=== PATIENT | male | born 1965 | race Caucasian/White ===

== ENCOUNTER 2018-10-27 09:35 | Observation (INO) ==
--- NOTE | 2018-10-27 10:17 | PROVIDER DOCUMENTATION ---
HPI-General Adult - General Chief Complaint: Extremity Pain Stated Complaint: rt leg pain Time Seen by Provider: 10/27/18 10:08 Source: patient Allergies/Adverse Reactions: Patient Allergies Allergy/AdvReac Type Severity Reaction Status Date / Time No Known Allergies Allergy Verified 08/23/16 19:54 - History of Present Illness -Gen Adult Nature of Presenting Problems: Patient is a 53 yowm presenting to the ED today for right leg swelling and pain. He reports the pain is primarily in the back of his leg, but the blood vessels in the front of his legs are distended. He states the pain started during the middle of the night. He reports redness and swelling in the lower extremity when standing and walking, but no redness or swelling noted on assessment (patient is laying down). He denies shortness of breath, chest pain, dizziness, n/v/d. He does report diaphoresis when walking due to the pain. Patient denies any other symptoms. He denies any recent surgeries or any history of DVT's. He denies any health problems. In no acute distress. Location of Pain/Injury: reports: lower extremity (right lower leg) Pain Radiation: reports: no radiation Quality of Pain: reports: aching, dull Severity: reports: mild Onset/Duration: reports: last night Timing: reports: still present Context/Activities at Onset: reports: sleep Modifying Factors: improves with: nothing Associated Symptoms: reports: diaphoresis (while walking due to pain). denies: anxiety, arm pain, back/neck pain, chest pain, constipation, cough, diarrhea, dizziness, EENT symptoms, fatigue, fever/chills, genitourinary problems, hea daches, heartburn, joint pain, loss of appetite, malaise, muscle aches, sinus congestion/drainage, nausea, rash, seizure, shortness of breath, sensory/motor loss, pain with inspiration, swelling/mass in abdomen, syncope, vomiting, weakness, trouble walking Similar Symptoms Previously?: No Recently seen or treated by another doctor?: No Review of Systems - Adult - REVIEW OF SYSTEMS - ADULT Constitutional: reports: no symptoms reported. denies: chills, fever Eyes: reports: no symptoms reported Ears, Nose, Mouth & Throat: reports: no symptoms reported Cardiovascular: reports: no symptoms reported. denies: chest pain, palpitations, syncope Respiratory: reports: no symptoms reported. denies: cough, dyspnea on exertion, shortness of breath Gastrointestinal: reports: no symptoms reported. denies: abdominal pain, diarrhea, nausea, vomiting Genitourinary: reports: no symptoms reported Musculoskeletal: reports: no symptoms reported Integumentary: reports: no symptoms reported Neurological: reports: no symptoms reported. denies: dizziness/vertigo, headache/migraines Psychiatric: reports: no symptoms reported Endocrine: reports: no symptoms reported Hematologic/Lymphatic: reports: no symptoms reported Allergic/Immunologic: reports: no symptoms reported All Other Systems: Reviewed and Negative Past History - Adult - PAST MEDICAL HISTORY-ADULT Review of Records: reports: Old Records Reviewed, Nursing Assessment Review, Medications Reviewed Major Childhood Illnesses: reports: denies history Cardiovascular: reports: denies history Respiratory: reports: denies history Gastrointestinal: reports: denies history Obstetrical/Gynecological: reports: denies history Genitourinary: reports: denies history Musculoskeletal: reports: denies history Neurological: reports: denies history Endocrine/Immune: reports: denies history Other Conditions: reports: denies history - IMMUNIZATION STATUS Childhood Immunizations: See Nurse Assessment Flu Vaccine: See Nurse Assessment - FAMILY HISTORY Family History: reviewed, not pertinent - SOCIAL HISTORY Smoking: denies Physical Exam-General - PHYSICAL EXAM-ADULT Initial Vital Signs Reviewed: Yes - CONSTITUTIONAL General Appearance: appears well, alert, no apparent distress - EYES Eyes: PERRL/EOMI, pink conjunctivae - HEAD, EARS, NOSE, MOUTH & THROAT HENMT: normocephalic/atraumatic, moist mucous membranes - NECK Neck: non-tender, full range of motion, supple - RESPIRATORY Respiratory: chest non-tender, lungs clear, normal breath sounds, no pleuratic chest pain, no respiratory distress, no accessory muscle use - CARDIOVASCULAR Cardiovascular: regular rate, rhythm, no edema, no gallop, no JVD, no murmur - GASTROINTESTINAL (ABDOMEN) Abdominal Exam: normal bowel sounds, non tender, soft - LYMPHATIC Lymphatic: no adenopathy - MUSCULOSKELETAL Back Exam: normal inspection, no CVA tenderness, no vertebral tenderness Extremity: normal range of motion, non-tender, normal gait, no pedal edema, tenderness (lower right leg), other (blood vessels distended) - SKIN Integumentary: normal color, normal turgor, warm/dry - NEUROLOGIC Neurologic: grossly normal, no motor/sensory deficits - PSYCHIATRIC Psych/Mental Status: normal mood/affect, normal thought content, normal thought process, oriented x 3 Progress - PLAN OF CARE/RESULTS Progress/Plan/Lab Results: Vital Signs - 8 hr 10/27/18 09:36 Temperature 98.9 F Pulse Rate 97 H Respiratory Rate 18 Blood Pressure 184/118 O2 Sat by Pulse Oximetry 98 Orders Category Date Time Status BNP [PRO B-NATRIURETIC PEPTIDE] Stat Lab 10/27/18 10:15 Uncollected CBC WITH ELECTRONIC DIFF [HEME] Stat Lab 10/27/18 10:13 Uncollected CK PROFILE [SP CHEM] Stat Lab 10/27/18 10:13 Uncollected COMPREHENSIVE METABOLIC PANEL [CHEM] Stat Lab 10/27/18 10:13 Uncollected D-DIMER [COAG] Stat Lab 10/27/18 10:13 Uncollected PROTIME WITH INR [COAG] Stat Lab 10/27/18 10:13 Uncollected PTT [COAG] Stat Lab 10/27/18 10:13 Uncollected TROPONIN T Stat Lab 10/27/18 10:13 Uncollected EKG [EKG] Stat Ther 10/27/18 10:13 Ordered Discussed plan of care with patient, he understands and agrees with plan of care and denies any questions at this time. 12:23- computer technical specialist reports patient told her he had a fall 2 weeks ago that he forgot to tell me about. 12:20- Paged hospitalist. 12:35- discussed plan of care with patient and family and informed them the hospitalist will be down to see patient soon. Result Diagrams: 10/27/18 09:57 10/27/18 09:57 - EKG 1 Time of EKG reading by physician:: 10:45 EKG Read and Signed by:: Nicole Romo EKG Interpretation (*Must complete 3 of following elements*): Normal Rate: 89 Rhythm: sinus [place]: normal DC Interval: normal ST Wave: normal - CONSULTS/PCP/HOSPITALIST Notification #1 *Consult/PCP/Hospitalist*: Dr. Santos Time Discussed: 12:25 Reason/Comments: Admission for DVT Consult Disposition: Will see in ED, Admit Departure - Departure Date of Disposition Decision: 10/27/18 Time of Disposition Decision: 12:28 DIAGNOSIS: Elevated blood pressure reading Hypertension Qualifiers: Hypertension type: unspecified Qualified Code(s): I10 - Essential (primary) hypertension DVT (deep venous thrombosis) Qualifiers: DVT location: lower extremity Affected thrombotic vein of extremity: unspecified vein of extremity Chronicity: acute Laterality: right Qualified Code(s): I82.401 - Acute embolism and thrombosis of unspecified deep veins of right lower extremity Disposition: ADMITTED INPATIENT 09 Certified Medical Emergency: Emergent Condition: Stable - Critical Care Note This patient required my direct & personal management of CC.: No Attestation - Physician/ LAWRENCE Attestation Patient care was provided by Advanced Practice Provider:: Yes Advanced Practice Provider:: Krista Park Advanced Practice Provider documentation review:: The Mid-level provider docume ntation, treatment plan and medical decision making was reviewed by the physician who agrees with all treatment and medical decision making by the MLP. The physician spent face to face time with patient:: No Advanced Practice Provider documentation review:: Supervising physician onsite and consulted in the evaluation and care of this patient. The physician did not have a face to face encounter with the patient.
[2018-10-27 10:41] LABS: BASO# 0.06 X1000 (0.0-0.2); BASO% 0.7 % (0.0-0.8); EOS# 0.16 X1000 (0.0-0.7); EOS% 1.8 % (0.0-10.0); HEMATOCRIT 47.3 % (42.0-52.0); IMM GRAN# 0.03 X1000 (0.0-0.04); IMM GRAN% 0.3 % (0.0-0.5); LYMPH# 2.14 X1000 (1.2-3.4); LYMPH% 24.4 % (20.5-51.1); MCH 28.9 PG (27-31); MCHC 33.8 g/dL (33-37); MCV 85.5 FL (81-99); MONO# 0.59 X1000 (0.11-0.59); MONO% 6.7 % (1.7-9.3); MPV 10.1 FL (7.4-10.4); NEUT# 5.79 X1000 (1.4-6.5); NEUT% 66.1 % (42.2-75.2); PLT 271 X1000 (130-400); RBC 5.53 XMIL (4.7-6.1); RDW 12.8 % (11.5-14.5); WBC 8.77 X1000 (4.8-10.8)
[2018-10-27 10:51] LABS: INR 0.88; PROTIME 12.6 Seconds (11.0-16.0)
[2018-10-27 10:52] LABS: PTT 33.9 Seconds (22.3-41.8)
[2018-10-27 10:54] LABS: D-DIMER 1.38 ug/mLFEU (0.0-0.52)
[2018-10-27 11:01] LABS: POTASSIUM 4.1 mmol/L (3.5-5.1); SODIUM 139 mmol/L (136-145)
[2018-10-27 11:02] LABS: AGAP 11; ALB/GLOB RATIO 1.2; ALBUMIN 4.3 g/dL (3.5-5.0); ALKALINE PHOSPHATASE 94 U/L (32-122); BUN 19 mg/dL (8-22); CALCIUM 9.2 mg/dL (8.8-10.2); CHLORIDE 102 mmol/L (98-107); COSMO 279; CREATININE 0.9 mg/dL (0.7-1.2); ESTIMATED GFR > 60; GLUCOSE 91 mg/dL (70-104); GOT 26 U/L (10-34); GPT 21 U/L (10-44); TCO2 26 mmol/L (25-35); TOTAL PROTEIN 7.9 g/dL (6.3-8.3)
--- NOTE | 2018-10-27 11:14 | EKG Report ---
Test Performed on : 10/27/2018 10:35:59 AM Test Reason : leg swelling Blood Pressure : / mmHG Vent. Rate : 089 BPM Atrial Rate : 089 BPM P-R Int : 146 ms QRS Dur : 094 ms QT Int : 368 ms P-R-T Axes : 046 -19 028 degrees QTc Int : 447 ms Normal sinus rhythm. Minimal voltage criteria for LVH, may be normal variant Borderline ECG No previous ECGs available Unconfirmed Result
[2018-10-27 11:20] LABS: CK PROFILE 560 U/L (24-204)
[2018-10-27 11:56] LABS: CK INDEX 0.7 (0.0-2.5); CK-MB 3.95 ng/mL (0.0-5.0)
[2018-10-27] MEDS ORDERED: APRESOLINE IV ONE (13:32)
[2018-10-27] MEDS: LOVENOX SUBQ SCH (13:53)
--- NOTE | 2018-10-27 14:15 | HISTORY AND PHYSICAL ---
CHIEF COMPLAINT: Right lower extremity pain. HISTORY OF PRESENT ILLNESS: This is a 53-year-old gentleman with no prior health history who presents to the emergency room complaining of pain and a burning sensation from his right knee down to his foot, primarily in his calf. He states that after standing for a while, his leg becomes tight and he is unable to move it, and he has difficulty putting pressure, standing. He denies any numbness or tingling, any change in color, or tingling to his leg or foot. He denies any syncope, dizziness, chest pain, palpitations, or any shortness of breath. The patient denies any recent sedentary activities. He denies any long trips, any flights, any injuries. He did state that he fell about 2 weeks ago, hurting this right leg and he has had intermittent pain, although it was different than this sensation. Venous ultrasound of the right lower extremity, preliminary read is DVT of the right lower extremity. PAST MEDICAL HISTORY: Childhood asthma. PAST SURGICAL HISTORY: Denies. SOCIAL HISTORY: He denies alcohol, tobacco, or illicit drug use. He is . He has a son and a [id number], has grandchildren that live nearby. ALLERGIES: No known drug allergies. HOME MEDICATIONS: None. REVIEW OF SYSTEMS: Discussed with the patient with pertinent positives stated in the HPI. He denies any syncope, dizziness, chest pain, palpitations, shortness of breath, cough, PND, orthopnea, any night sweats, any recent weight loss or weight gain, any nausea, vomiting, diarrhea, constipation, black or bloody vomitus or stools, hematuria, dysuria, frequency, urgency. PHYSICAL EXAMINATION: GENERAL: This is a 53-year-old gentleman who is sitting up on the stretcher in the emergency room, in no distress. VITAL SIGNS: Blood pressure is 170/120, heart rate is 97, respirations are 20, temperature is 98.9 degrees, with room air saturations 95-97%. HEENT: Eyes: Pupils are equal, round, react to light. EOMs are intact. Mucous membranes are moist. NECK: Supple. Trachea midline. CARDIOVASCULAR: Regular rate and rhythm. S1 and S2 are appreciated. He has no murmur. He has no lower extremity edema. Left calf is nontender with peripheral pulses palpable x4 extremities. PULMONARY: Breath sounds are clear. No increased work of breathing noted. Chest rises and falls symmetric with respirations. Chest wall is nontender to palpation. GASTROINTESTINAL: Abdomen is soft, nontender, nondistended. Bowel sounds in all 4 quadrants. GENITOURINARY: There is no CVA or suprapubic tenderness. NEUROLOGIC: He is alert and oriented x3. SKIN: Warm and dry. LABS: WBC is 8.7, with hemoglobin 16, hematocrit 47.3, and platelets of 271,000. D-dimer is 1.38 with INR of 0.88. Sodium 139, potassium 4.1, BUN 19, creatinine 0.9, with a glucose of 91. CPK is 560, troponin is negative. CRP is 37.6. ASSESSMENT AND PLAN: 1. Right lower extremity deep venous thrombosis. We will give the patient Lovenox 1 mg/kg twice a day. We will consult social welfare clerk to check on his affordability of Eliquis or Xarelto. We will draw hypercoagulation labs. As he has no primary care physician, they do have a relationship with Dr. Landa, so we will schedule a followup with Dr. Landa in 4 to 6 weeks to discuss labs. 2. Hypertension. The patient denies any prior hypertension. He denies a prior diagnosis of hypertension. We will give hydralazine as needed for blood pressure of 180 systolic or over 90 diastolic, and reevaluate. 3. Further treatments pending hospital course and discussion with Dr. Olmos. Dictated by DANG Matias for Yahir Evans MD cc: DANG Matias MD
[2018-10-27] MEDS ORDERED: APRESOLINE IV PRN (15:38)
[2018-10-27] MEDS: NORCO-7.5 PO PRN ×2 (16:09→22:18)
[2018-10-28] MEDS: LOVENOX SUBQ SCH ×2 (02:37→14:37)
[2018-10-28 05:57] LABS: BASO# 0.06 X1000 (0.0-0.2); BASO% 0.8 % (0.0-0.8); EOS# 0.11 X1000 (0.0-0.7); EOS% 1.5 % (0.0-10.0); HEMATOCRIT 45.1 % (42.0-52.0); IMM GRAN# 0.02 X1000 (0.0-0.04); IMM GRAN% 0.3 % (0.0-0.5); LYMPH# 2.43 X1000 (1.2-3.4); LYMPH% 33.6 % (20.5-51.1); MCH 28.8 PG (27-31); MCHC 33.3 g/dL (33-37); MCV 86.6 FL (81-99); MONO# 0.66 X1000 (0.11-0.59); MONO% 9.1 % (1.7-9.3); MPV 9.8 FL (7.4-10.4); NEUT# 3.96 X1000 (1.4-6.5); NEUT% 54.7 % (42.2-75.2); PLT 277 X1000 (130-400); RBC 5.21 XMIL (4.7-6.1); WBC 7.24 X1000 (4.8-10.8)
[2018-10-28 06:27] LABS: AGAP 12; ALKALINE PHOSPHATASE 81 U/L (32-122); BUN 13 mg/dL (8-22); CHLORIDE 102 mmol/L (98-107); COSMO 278; CREATININE 0.8 mg/dL (0.7-1.2); ESTIMATED GFR > 60; GLUCOSE 97 mg/dL (70-104); GOT 16 U/L (10-34); GPT 17 U/L (10-44); POTASSIUM 4.1 mmol/L (3.5-5.1); SODIUM 139 mmol/L (136-145); TCO2 26 mmol/L (25-35); TOTAL PROTEIN 7.5 g/dL (6.3-8.3)
[2018-10-28] MEDS: NORCO-7.5 PO PRN (06:42)
[2018-10-28] MEDS ORDERED: PRINIVIL PO SCH (09:00)
[2018-10-28 12:18] VITALS: BP 144/96
--- NOTE | 2018-10-28 15:54 | Extremity Venous Study ---
PROCEDURE NAME: Venous U/S Right Leg - 10/27/2018 PROCEDURE: Right lower extremity venous duplex study. DATE OF STUDY: 10/27/2018. REFERRING PHYSICIAN: DANG Park. READING PHYSICIAN: Luis. EDUCATION DIRECTOR: Марина. INDICATION: Right leg pain. FINDINGS: The right common femoral, deep femoral and superficial femoral veins were imaged. They are compressible, patent without thrombus. The right greater saphenous vein is also compressible and patent and without thrombus. However, there is acute thrombosis of the right popliteal, posterior tibial, peroneal and lesser saphenous veins. These veins are not compressible. There is no flow. INTERPRETATION: Acute deep vein thrombosis of the right popliteal, posterior tibial and peroneal veins, acute supraventricular tachycardia of the lesser saphenous vein on the right. cc: Kaiden Smith MD
--- NOTE | 2018-10-29 03:43 | DISCHARGE SUMMARY ---
ADMISSION DATE: 10/27/2018 DISCHARGE DATE: 10/28/2018 PRIMARY CARE PROVIDER: None. ONCOLOGIST: Dr. Landa. PERTINENT PROCEDURES: EKG showed normal sinus rhythm. DISCHARGE DIAGNOSES: 1. Right lower extremity deep venous thrombosis. The patient was initiated on Lovenox 1 mcg/kg twice a day. We compared the affordability of Eliquis and Xarelto with his insurance. He will be discharged with Xarelto. Hypercoagulable studies were performed. He will follow up in the office with Dr. Landa in the next 4 to 6 weeks to discuss his lab work and he will take his Xarelto as prescribed. 2. Hypertension. He has been given a prescription for lisinopril. HOSPITAL COURSE: Briefly, Mr. Calle is a 53-year-old male who reports no prior health history, who came to the ED complaining of pain and burning sensation of the right knee down to his foot primarily in his calf. He stated after standing for a while his leg became tight and unable to move it. He had difficulty putting pressure on it and standing. There was no numbness or tingling, change in color or discoloration. He denied any recent sedentary activities or long trips, flights or injuries. He did report that he had a fall 2 weeks ago hurting his right leg and he had intermittent pain although this was a different type of sensation. A venous ultrasound of the right lower extremity preliminary read as a DVT in the right lower extremity. He was initiated on full dose Lovenox b.i.d. He was moved from [facility] to [place] secondary to a bed shortage. We have compared the affordability of his Eliquis or Xarelto. He will be discharged on Xarelto and to follow up on his hypercoagulable studies with Dr. Landa in his office. He has been given 2 prescriptions, 1 for the initial dose of Xarelto and 1 for the maintenance dose. He will need to follow up with Dr. Landa to continue getting refills and he is being discharged home today. VITAL SIGNS: Temperature is 97.9 degrees, heart rate 85, respirations 16, blood pressure 144/96, O2 is 97% on room air. DISCHARGE DIET: Regular. DISCHARGE MEDICATIONS: 1. Xarelto 15 mg p.o. b.i.d. for the first 21 days then Xarelto 20 mg p.o. daily to start on day 22. 2. Prinivil 10 mg p.o. daily. FOLLOWUP: Mr. Calle is being discharged back home with self care. He is to follow up with Dr. Landa within the next 4 to 6 weeks to discuss his hypercoagulable laboratory data and to continue his prescription for Xarelto. He will also need to find a primary care provider of his choosing. A list will be provided to him. He can return to the ED or call 911 for any worsening of symptoms. Dictated by DANG Vitale for Aleksandar Santos MD cc: MD Live Jackson MD
--- NOTE | 2018-10-29 03:57 | DISCHARGE SUMMARY ---
ADMISSION DATE: 10/27/2018 DISCHARGE DATE: 10/28/2018 ADDENDUM: Patient seen and examined by myself. Full note dictated and discussed with nurse practitioner. On discharge, patient is awake, alert, currently in no respiratory distress. He does have a DVT. Xarelto is affordable and therefore he will be discharged home. See full dictation. cc: Aleksandar Santos MD
== END 2018-10-28 14:50 | disposition home or self-care (01) ==
LOC: P.MEDSURG 09:35 → ED 09:35
PROVIDERS: ATTEND Family Medicine
CPT/HCPCS: 80053; 81240; 81241; 82550; 82553; 83090; 83880; 84484; 85025; 85300; 85301; 85302; 85306; 85379; 85610; 85612; 85613; 85651; 85730; 86140; 86147; 93005; 93971; A9270; J0360; J1650

== ENCOUNTER 2019-03-27 11:36 | Inpatient (IN) ==
[2019-03-27] MEDS ORDERED: LOPRESSOR ONE (12:08)
[2019-03-27] MEDS ORDERED: NS 50 ML ONE (12:10)
[2019-03-27] MEDS ORDERED: LOPRESSOR 10 MG in NS 50 ML IV ONE (12:11)
[2019-03-27] MEDS ORDERED: DEMEROL IV ONE ×3 (12:15→12:31)
[2019-03-27] MEDS ORDERED: SODIUM CHLORIDE 0.9% INJ ONE (12:16)
[2019-03-27] MEDS ORDERED: PHENERGAN IV ONE (12:16)
[2019-03-27 12:35] LABS: BASO# 0.03 X1000 (0.0-0.2); BASO% 0.3 % (0.0-0.8); EOS% 0.8 % (0.0-10.0); HEMATOCRIT 40.9 % (42.0-52.0); HEMOGLOBIN 12.5 g/dL (14.0-18.0); IMM GRAN# 0.08 X1000 (0.0-0.04); IMM GRAN% 0.7 % (0.0-0.5); LYMPH# 0.99 X1000 (1.2-3.4); LYMPH% 8.3 % (20.5-51.1); MCH 25.9 PG (27-31); MCHC 30.6 g/dL (33-37); MCV 84.7 FL (81-99); MONO# 0.58 X1000 (0.11-0.59); MONO% 4.8 % (1.7-9.3); MPV 9.1 FL (7.4-10.4); NEUT# 10.22 X1000 (1.4-6.5); NEUT% 85.1 % (42.2-75.2); PLT 380 X1000 (130-400); RBC 4.83 XMIL (4.7-6.1); RDW 14.2 % (11.5-14.5)
[2019-03-27 12:44] LABS: AGAP 14; ALBUMIN 3.8 g/dL (3.5-5.0); ALKALINE PHOSPHATASE 67 U/L (32-122); BUN 14 mg/dL (8-22); CALCIUM 9.8 mg/dL (8.8-10.2); CHLORIDE 100 mmol/L (98-107); COSMO 278; CREATININE 0.7 mg/dL (0.7-1.2); ESTIMATED GFR > 60; GLUCOSE 105 mg/dL (70-104); GOT 23 U/L (10-34); GPT 29 U/L (10-44); POTASSIUM 4.2 mmol/L (3.5-5.1); SODIUM 139 mmol/L (136-145); TCO2 25 mmol/L (25-35); TOTAL PROTEIN 7.4 g/dL (6.3-8.3)
[2019-03-27] MEDS ORDERED: DILAUDID IV ONE (12:52)
[2019-03-27 12:53] LABS: CK PROFILE 364 U/L (24-204)
[2019-03-27 13:08] LABS: CK INDEX 1.4 (0.0-2.5); CK-MB 4.97 ng/mL (0.0-5.0)
[2019-03-27] MEDS ORDERED: CATAPRES PO ONE (14:12)
[2019-03-27 14:27] LABS: BILIRUBIN URINE NEGATIVE (NEGATIVE); BLOOD URINE 3+ (NEGATIVE); CLARITY SL. CLOUDY (CLEAR); COLOR YELLOW; GLUCOSE URINE NEGATIVE (NEGATIVE); KETONE URINE TRACE mg/dL (NEGATIVE); LEUKOCYTES URINE TRACE (NEGATIVE); NITRITE URINE NEGATIVE (NEGATIVE); PROTEIN URINE 1+(30 mg/dL) mg/dL (NEGATIVE); UROBILINOGEN URINE NORMAL
[2019-03-27 14:29] LABS: UR AMPHETAMINES QUAL NONE DETECTED (NONE DETECT); UR BARBITUATES QUAL NONE DETECTED (NONE DETECT); UR BENZODIAZEPIN QUAL NONE DETECTED (NONE DETECT); UR CANNABINOIDS QUAL NONE DETECTED (NONE DETECT); UR COCAINE QUAL NONE DETECTED (NONE DETECT); UR METHADONE QUAL NONE DETECTED (NONE DETECT); UR METHAMPHETAMINE QUAL NONE DETECTED (NONE DETECT); UR OPIATES QUAL PRESUMPTIVE POSITIVE (NONE DETECT); UR OXYCODONE QUAL NONE DETECTED (NONE DETECT); UR PCP QUAL NONE DETECTED (NONE DETECT); UR PROPOXYPHENE QUAL NONE DETECTED (NONE DETECT); UR TCA QUAL NONE DETECTED (NONE DETECT)
[2019-03-27 14:42] LABS: URINE BACTERIA 1+ /HFP; URINE CAST NONE SEEN /LPF; URINE CRYSTAL NONE SEEN /HPF; URINE EPITHELIAL CELLS <10 /HPF (<10); URINE WBC <10 /HPF (<10); URINE YEAST NONE SEEN /HPF
[2019-03-27 14:43] LABS: URINE SOURCE CLEAN CATCH
--- NOTE | 2019-03-27 16:38 | Diag Imaging Result Doc PS360 ---
EXAM : CT LUMBAR SPINE W/O CONTRAST HISTORY: pain TECHNIQUE: CT lumbar spine without contrast COMPARISON: None. No plain films obtained. FINDINGS: There is a small amount of motion superiorly. No compressed vertebra. No subluxation. Small degenerative bone spurs. No disc herniation although there are small bulging discs at L4-5 and L5-S1. IMPRESSION: No fracture or disc herniation. An MRI is recommended if clinical symptoms persist Lumbar spine: No acute fracture.This exam was performed using automated exposure control, adjustment of mA or kV according to patient size, and/or use of iterative reconstruction technique. Electronically signed by Joseph Lee 03/27/2019 4:35 PM
--- NOTE | 2019-03-27 16:44 | Diag Imaging Result Doc PS360 ---
EXAM: CT ABD/PELVIS W/IV CONT ONLY HISTORY: pain TECHNIQUE: CT abdomen and pelvis with intravenous contrast COMPARISON: None. FINDINGS: There are calcified mediastinal lymph nodes. No infiltrates in the lower lungs. No calcified gallstones or adjacent inflammation. There is fatty infiltration of the liver. The spleen measures 14.1 cm in AP diameter. Normal pancreas, adrenal glands, and kidneys. No hydronephrosis. Normal aorta. Normal appendix. No abscess. No bowel obstruction. There are scattered colonic diverticula. There is stool throughout the colon. The urinary bladder is moderately distended and normal. Normal prostate. There are fat filled inguinal hernias. The one on the right is larger than the one on the left. IMPRESSION: 1.Fatty infiltration of the liver 2.Mild splenomegaly 3.Constipation 4.Colonic diverticulosis 5.Inguinal hernias This exam was performed using automated exposure control, adjustment of mA or kV according to patient size, and/or use of iterative reconstruction technique. Electronically signed by Joseph Lee 03/27/2019 4:42 PM
[2019-03-27] MEDS: DILAUDID IV PRN ×3 (17:03→23:41)
[2019-03-27] MEDS: CARDENE 20 MG/NS 20 MG/200 ML PIGGYBACK IV SCH ×2 (17:06→20:26)
[2019-03-27] MEDS ORDERED: ZOFRAN IV PRN (17:47)
[2019-03-27] MEDS ORDERED: CARDENE 20 MG/NS 20 MG/200 ML PIGGYBACK IV SCH (17:47)
[2019-03-27] MEDS ORDERED: FLEXERIL PO SCH (17:47)
[2019-03-27] MEDS: LOVENOX SUBQ SCH (18:21)
[2019-03-27] MEDS: NS 1,000 ML IV SCH (18:21)
--- NOTE | 2019-03-27 18:22 | HISTORY AND PHYSICAL ---
CHIEF COMPLAINT: Pain in his right lower extremity. HISTORY OF PRESENT ILLNESS: This is a 53-year-old male with history of severe pain in his right leg, excruciating pain, sharp, radiating. Apparently, it started on the 6th. He has also remote history of camping, and he woke up and found several ticks on his right leg when he was camping within the last couple of weeks. On the , he was evaluated and felt to have a myalgia and was given Flexeril and Neurontin, but really did not have much improvement. Now pain is so severe he cannot tolerate, and his blood pressure is very high. Ultrasound was done. There was no DVT. He had a history of DVT. He was taken off blood thinners recently. Pain was going off and on for 6 months apparently. He has numbness. He says he also has difficulty flexing and extending his toes, and he has neuropathy. The pain was severe. He says it was at a level of 20/10. He required several medications in the ER including IV Dilaudid, but the pain is only partially controlled. Blood pressure though was 190s/130s despite multiple medications including clonidine and meperidine which he got a total of 100 mg. His blood pressure is still very elevated, so he was admitted for hypertensive crisis. He was sent to [facility] because the CT scanner was down at the [facility] for imaging of his lumbar spine, abdomen, and pelvis, but really non- revealing for anything that would show pathology to describe his severe pain in his right leg which sounds more neuropathic than anything else. PAST MEDICAL HISTORY: He really has no significant history except the DVTs. No hypertension. No diabetes. No cardiac disease. PAST SURGICAL HISTORY: Denies. FAMILY HISTORY: Reviewed and noncontributory. SOCIAL HISTORY: No tobacco or ethanol. ALLERGIES: No known drug allergies. MEDICATIONS: Just the recent medications which include ibuprofen, prednisone, Neurontin, and Flexeril. REVIEW OF SYSTEMS: Otherwise negative times a 10-point review of systems. PHYSICAL EXAMINATION: VITAL SIGNS: Blood pressure is 188/123, heart rate of 101, respiratory rate of 16, temperature was 98.5 degrees. GENERAL: A well-developed male, pale, in mild distress due to pain. HEAD: Normocephalic, atraumatic. EYES: Pupils equal, round, and reactive to light. Extraocular movements were intact. EARS, NOSE AND THROAT: Exam showed moist mucous membranes. CARDIOVASCULAR: Regular rate and rhythm. PULMONARY: Bilateral breath sounds. Clear to auscultation. GI: Soft, nontender, nondistended. Bowel sounds are positive. MUSCULOSKELETAL: Was 4/5 in all 4 extremities. NEUROLOGIC: Nonfocal. He did have decreased perception in his right lower extremity to proprioception and touch. SKIN: Exam was unremarkable. LABORATORY DATA: White count is 12, hemoglobin and hematocrit 12 and 40, platelets of 380,000. Basic was normal. Sedimentation rate was elevated at a level of 65. CPK was 364. Urine was unremarkable. UDS positive for opiates alone. CT showed inguinal hernias without obstruction. CT of the lumbar spine was really unremarkable. ASSESSMENT: This is a 53-year-old male with hypertensive crisis and malignant hypertension. 1. Hypertensive crisis. He will be admitted for treatment. We will put him on nicardipine gtt and starton other medications. We may have to add other medications to assist and follow closely. 2. Severe neuropathy and neuralgia of his right lower extremity without clear cause. I am going to pursue MRI of the spine, and neurology consultation for better evaluation. We will continue with pain control and monitor. 3. Tick-borne disease. He does report tick exposure. We will check him for Lyme disease and other tick-borne diseases and pursue doxycycline until we can kind of evaluate better for ultimate pathology. DISPOSITION: Pending clinical status. We will continue to monitor closely. He will go to the ICU for IV nicardipine. TIME SPENT: Critical care time 35 minutes. The patient was examined at [facility] previously. cc: Pete Eugene MD [facility]
[2019-03-27] MEDS: TOPROL XL PO SCH (18:26)
[2019-03-27] MEDS: ZANAFLEX PO PRN (20:04)
[2019-03-27] MEDS ORDERED: NEURONTIN PO SCH (21:00)
[2019-03-27] MEDS: DOXYCYCLINE PO SCH (21:39)
[2019-03-27] MEDS: LACTULOSE PO SCH (21:39)
[2019-03-27] MEDS: NEURONTIN PO SCH (21:39)
--- NOTE | 2019-03-27 21:39 | Diag Imaging Result Doc PS360 ---
EXAM: CHEST-1 VIEW HISTORY: evaluation TECHNIQUE: Single view COMPARISON: 03/12/2019 FINDINGS: The lungs are well expanded. The heart is not enlarged. The vessels are not distended. There are no infiltrates. No effusion identified. Right granuloma. IMPRESSION: Negative exam. Electronically signed by Joseph Lee 03/27/2019 9:37 PM
[2019-03-27 21:46] LABS: BASO# 0.03 X1000 (0.0-0.2); BASO% 0.2 % (0.0-0.8); EOS# 0.09 X1000 (0.0-0.7); EOS% 0.7 % (0.0-10.0); HEMATOCRIT 38.3 % (42.0-52.0); HEMOGLOBIN 11.9 g/dL (14.0-18.0); IMM GRAN# 0.08 X1000 (0.0-0.04); IMM GRAN% 0.6 % (0.0-0.5); LYMPH% 6.5 % (20.5-51.1); MCH 26.5 PG (27-31); MCHC 31.1 g/dL (33-37); MCV 85.3 FL (81-99); MONO# 0.68 X1000 (0.11-0.59); MONO% 5.5 % (1.7-9.3); MPV 8.7 FL (7.4-10.4); NEUT# 10.67 X1000 (1.4-6.5); NEUT% 86.5 % (42.2-75.2); PLT 350 X1000 (130-400); RBC 4.49 XMIL (4.7-6.1); RDW 14.2 % (11.5-14.5); WBC 12.35 X1000 (4.8-10.8)
[2019-03-27 21:52] LABS: INR 1.1; PROTIME 14.4 Seconds (11.0-16.0)
[2019-03-27 21:53] LABS: PTT 34.3 Seconds (22.3-41.8)
[2019-03-27 22:24] LABS: AGAP 17; ALB/GLOB RATIO 1.3; ALBUMIN 3.5 g/dL (3.5-5.0); ALKALINE PHOSPHATASE 61 U/L (32-122); BUN 12 mg/dL (8-22); CALCIUM 9.5 mg/dL (8.8-10.2); CHLORIDE 96 mmol/L (98-107); COSMO 273; CREATININE 0.6 mg/dL (0.7-1.2); ESTIMATED GFR > 60; GLUCOSE 118 mg/dL (70-104); GOT 18 U/L (10-34); GPT 25 U/L (10-44); POTASSIUM 4.2 mmol/L (3.5-5.1); SODIUM 136 mmol/L (136-145); TCO2 23 mmol/L (25-35); TOTAL BILIRUBIN 0.35 mg/dL (0.20-1.00); TOTAL PROTEIN 6.1 g/dL (6.3-8.3)
[2019-03-27 22:26] LABS: CK PROFILE 265 U/L (24-204)
[2019-03-27 22:35] LABS: URINE SOURCE CLEAN CATCH
[2019-03-27 22:40] LABS: BILIRUBIN URINE NEGATIVE (NEGATIVE); BLOOD URINE MODERATE (NEGATIVE); COLOR YELLOW; GLUCOSE URINE NEGATIVE (NEGATIVE); KETONE URINE 60 mg/dL (NEGATIVE); LEUKOCYTES URINE NEGATIVE (NEGATIVE); NITRITE URINE NEGATIVE (NEGATIVE); PH URINE 6.5; PROTEIN URINE TRACE mg/dL (NEGATIVE); SP GRAVITY URINE 1.037; TURBIDITY URINE CLEAR (CLEAR); UR EPITHELIAL CELLS <10 /HPF (<10); URINE BACTERIA NEGATIVE /HPF; URINE WBC <10 /HPF (<10); UROBILINOGEN URINE NORMAL (NORMAL)
[2019-03-27 22:49] LABS: CK INDEX 1.4 (0.0-2.5); CK-MB 3.62 ng/mL (0.0-5.0)
[2019-03-28] MEDS: NS 1,000 ML IV SCH ×2 (04:56→16:11)
[2019-03-28] MEDS: DILAUDID IV PRN ×4 (05:16→20:32)
[2019-03-28 06:28] LABS: BASO# 0.05 X1000 (0.0-0.2); BASO% 0.5 % (0.0-0.8); EOS# 0.25 X1000 (0.0-0.7); EOS% 2.4 % (0.0-10.0); HEMATOCRIT 36.4 % (42.0-52.0); HEMOGLOBIN 11.2 g/dL (14.0-18.0); IMM GRAN# 0.06 X1000 (0.0-0.04); IMM GRAN% 0.6 % (0.0-0.5); LYMPH# 1.17 X1000 (1.2-3.4); LYMPH% 11.4 % (20.5-51.1); MCH 26.6 PG (27-31); MCHC 30.8 g/dL (33-37); MCV 86.5 FL (81-99); MONO# 0.73 X1000 (0.11-0.59); MONO% 7.1 % (1.7-9.3); MPV 9.3 FL (7.4-10.4); NEUT# 7.97 X1000 (1.4-6.5); PLT 326 X1000 (130-400); RBC 4.21 XMIL (4.7-6.1); RDW 14.4 % (11.5-14.5); WBC 10.23 X1000 (4.8-10.8)
[2019-03-28 07:08] LABS: AGAP 15; BUN 11 mg/dL (8-22); CALCIUM 8.2 mg/dL (8.8-10.2); CHLORIDE 96 mmol/L (98-107); COSMO 267; CREATININE 0.6 mg/dL (0.7-1.2); ESTIMATED GFR > 60; GLUCOSE 93 mg/dL (70-104); POTASSIUM 4.3 mmol/L (3.5-5.1); SODIUM 134 mmol/L (136-145); TCO2 23 mmol/L (25-35)
--- NOTE | 2019-03-28 08:11 | EKG Report ---
Test Performed on : 03/27/2019 12:13:19 PM Test Reason : hypertension Blood Pressure : / mmHG Vent. Rate : 113 BPM Atrial Rate : 113 BPM P-R Int : 124 ms QRS Dur : 090 ms QT Int : 328 ms P-R-T Axes : 065 -17 032 degrees QTc Int : 449 ms Sinus tachycardia. Otherwise normal ECG When compared with ECG of 12-MAR-2019 11:04, (Unconfirmed) No significant change was found Confirmed by Burak Leroy MD ([id number]), market editor Ute Peña ([id number]) on 06/20/2019 12:31:43 PM
[2019-03-28] MEDS: PREDNISONE PO SCH (08:17)
[2019-03-28] MEDS: TOPROL XL PO SCH (08:17)
[2019-03-28] MEDS: DOXYCYCLINE PO SCH ×2 (08:17→20:33)
[2019-03-28] MEDS: LACTULOSE PO SCH ×2 (08:17→20:34)
[2019-03-28] MEDS: NEURONTIN PO SCH ×2 (08:17→20:33)
[2019-03-28] MEDS: MIRALAX PO SCH (08:17)
[2019-03-28] MEDS ORDERED: PREDNISONE PO SCH ×3 (09:00)
--- NOTE | 2019-03-28 09:36 | Diag Imaging Result Doc PS360 ---
MRI LUMBAR SPINE W/O CONTRAST - 03/28/2019 INDICATION: severe neuropathy COMPARISON: CT lumbar spine 03/27/2019 FINDINGS: Alignment is anatomic. Bone marrow signal is hypercellular. No bone marrow edema. The conus is seen at L1 and appears normal. The levels from T10-L3 are normal. At L3-L4 there is some facet hypertrophy but no central canal stenosis. At L4-L5 there is a diffuse disc bulge. There is significant facet hypertrophy. There is moderate central canal stenosis. No neural foraminal stenosis. At L5-S1 there is a disc bulge. No stenosis. IMPRESSION: Mild lumbar spondylosis. Electronically signed by Trell Mota 03/28/2019 9:34 AM
--- NOTE | 2019-03-28 16:11 | Diag Imaging Result Doc PS360 ---
EXAM: US ABDOMEN-COMPLETE 03/28/2019 HISTORY: look at the aorta, ? emboli TECHNIQUE: Abdominal aorta. COMMENT: The liver is hyperechoic. The visualized portions of the aorta and inferior vena cava are normal in caliber. There are portions of the abdominal aorta which are obscured by bowel gas. There is antegrade flow in the portal vein. The gallbladder is clear. There is no evidence of biliary dilatation the common bile duct measuring 5 mm. The spleen is not enlarged. There are no abnormal fluid collections. The kidneys are without evidence of hydronephrosis or mass. The pancreas is obscured. There is no sonographic Singletary sign. IMPRESSION: Hepatic steatosis otherwise no evidence of acute disease. Electronically signed by Edgard Block 03/28/2019 4:08 PM
--- NOTE | 2019-03-28 16:13 | CONSULTATION ---
DATE OF CONSULTATION: 03/28/2019 HISTORY OF PRESENT ILLNESS: Mr. Calle is 53 years old and he has chief complaint of leg pain. History from the patient and attentive and review of the hospital record is that he had fairly abrupt onset of swelling and pain in the right lower leg about 5 months ago. Diagnosis of DVT was made then. He was started on Xarelto and may have had some pain management then. A few days later, he noticed red sclera in the left eye. He had Ophthalmology evaluation. He believes Rheumatology workup is planned. He has been taking steroid medicine since then. He reports periods of numbness for about 20 minutes alternating left and right hand, sometimes both hands simultaneously, mostly median nerve territory on each hand. Sometimes, there has been numbness in the left foot. Right lateral foot numbness has been persistent since DVT was diagnosed. In the last several days or week, he has noticed much more intense pain in the right lower leg, mostly burning posteriorly beginning above the knee with definite radiation of pain along the posterior aspect of the right lower leg to the foot. He has had some similar but much milder pain in the last few days in the left leg. Numbness now involves the entire right foot. He has had some numbness in the left foot persisting in recent days, less prominent than on the right. He has noticed weakness in the right lower leg. He cannot move his right foot well. He has not had persistent numbness in the hands. He has not had weakness in the hands or arms. He has not noticed facial asymmetry or ptosis. The injected sclera has resolved. There was never definite vision disturbance. He has always been a little bit proptotic and family reports appearance of the eyes is unchanged. He has not had trouble chewing or swallowing. He has not lost bowel or bladder control. He has not had much back pain. He had some hip pain earlier but that has not been prominent recently. He does not report radicular pain in the back. There is no history of back or leg injury. There is reported history of exposure to tick. There has not been snake bite or other exposure. He has not had skin rash. He has not had fever. Weight has been stable, but he believes he has lost a good bit of muscle mass in the legs. He has had extensive workup. Lumbar MRI shows some degenerative changes, but nothing really remarkable. Lab showed CK was 560 on 10/27/2018, but stable 100 to 300 since then. WBC count was 12,000 and then 10,000. He has anemia. Thyroid lab has all been unremarkable. Liver enzymes are all normal. Urine drug screen was positive only for opiates consistent with his occasional prescription for hydrocodone provided by the emergency room. ABELARDO was positive with low DS DNA titer. As above, rheumatology workup is scheduled. He reported tick exposure, not clear to me whether this was just before onset of current syndrome or not. Lyme disease and tick borne antibody panels have been ordered. He had temperature recorded 101.3 this morning. Heart rate has been 80s-90s. Systolic blood pressures have been 110s-140s today. PHYSICAL EXAMINATION: Mr. Calle is awake, alert, attentive. He seems appropriate. Speech is not dysarthric. Language function is intact. Memory is good. He is oriented. Head and neck are unremarkable. There is no meningismus. Visual suh are full tested by confrontational finger counting. There is some proptosis. Extraocular movements are full. Pupils react to light. Facial motility is symmetric. Facial sensation is intact to pinprick testing. Gag is intact. Tongue is midline. He can hear. Shoulder shrug is equal. Strength is normal in the arms. Tone is symmetric in the arms. He did well on [id number] testing bilaterally. He reports good pinprick appreciation over the hands and arms. Reflexes are 2+ at the wrists and biceps symmetrically. In the legs, reflexes are 2+ at the right knee, 1+ at the left knee, absent at the right ankle, trace at the left ankle. Plantar response is silent bilaterally. He reports diminished pinprick appreciation circumferentially around the right leg extending to just about the knee. On the left, he has diminished pinprick appreciation across the foot with denser deficit over the lateral lower leg than the medial lower leg. Overall, pinprick deficit is greater over the right foot than the left. Proprioception is absent at the right great toe MCP joint and very diminished at the right ankle. Proprioception is slightly diminished at the left great toe. He has good power proximally in the legs, grading at least 4/5 at the iliopsoas, hamstrings, quadriceps, hip flexors, hip abductors, and abductors bilaterally. I can overcome the right anterior tibialis graded 1/5, gastrocnemius 2/5, posterior tibialis 1/5, peroneus longus 0/5. On the left, strength in the lower leg is 3/5 to 4/5. I did not see fasciculation. He reports his legs are thin, but I do not see focal atrophy. Straight leg raising is negative bilaterally. He has consistently normal pinprick appreciation over the abdomen. Abdominal muscle contraction is symmetric. I did not test his gait. IMPRESSION: Bilateral leg weakness and numbness, much worse on the right. This appears to be mostly lower motor neuron. Explanation is not clear. There has been moderately elevated CK, which is improved. I do not find anything else to suggest polymyositis, but painful muscle weakness involving both legs with lower motor neuron features could be myositis. Typically, polymyositis would be more proximal than distal. The prominent weakness and hyporeflexia would be consistent with acute idiopathic demyelinating polyneuropathy, but the reported time frame, symptoms 5 months ago with progression only in the last week is not typical. There is no myotonia or definite pseudomyotonia. There is not definite upper motor neuron finding, but lumbar MRI would not exclude cervical or thoracic cord lesion which might account for weakness in both legs. We need to get the tick disease related lab work reported. We will plan to get nerve conduction and EMG when available, I hope tomorrow. Depending on those findings, we might need to consider cervical and thoracic MRI. Rheumatology evaluation needs to be considered as previously planned. He reports stable course in the last several days, pain much better controlled now. I do not think we have to do anything on an emergency basis. We will get nerve conduction tomorrow and go from there. Thanks for asking Neurology to see Mr. Castellon. cc: MD LEIGH Gaston III
[2019-03-28] MEDS: LOVENOX SUBQ SCH (18:21)
[2019-03-28] MEDS: TYLENOL PO PRN (20:33)
--- NOTE | 2019-03-28 20:36 | ECHO REPORT ---
ORDER DATE: 03/28/2019 INDICATION: Suspected heart failure. Suspected endocarditis. M-MODE MEASUREMENTS: Left ventricle end diastole: 4.3. Left ventricle end systole: 2.8. Posterior wall: 1.1. Interventricular septum: 1.1. Left atrium: 3.4. Aortic diameter: 3.4. SUMMARY OF 2-DIMENSIONAL IMAGIN. The left ventricular function is normal. Ejection fraction is 65%. No wall motion abnormality is noted. The chamber is not significantly enlarged. 2. The aortic valve looks normal. Color flow mapping is unremarkable. 3. The pulmonic valve looks grossly normal. Color flow mapping unremarkable. 4. The mitral valve looks normal. Color flow mapping indicates mild degree of regurgitation. 5. Pulse wave Doppler of mitral inflow shows normal E/A ratio. 6. Tissue Doppler of septal and lateral mitral annulus averages 7 cm. 7. There is no diastolic dysfunction. 8. The tricuspid valve shows a mild degree of regurgitation. 9. The inferior vena cava is not dilated. 10.Pulmonary pressure is estimated at 38 mmHg. 11.The left atrium appears to be mildly enlarged. 12.There is no pericardial effusion, mass, and no thrombus. 13.The right ventricle is not enlarged. Clinical correlation recommended. cc: MD Lenny Estrada MD MTDD
[2019-03-29] MEDS: NS 1,000 ML IV SCH ×3 (01:24→19:53)
[2019-03-29] MEDS: DILAUDID IV PRN (05:44)
[2019-03-29] MEDS: DOXYCYCLINE PO SCH ×2 (08:27→19:53)
[2019-03-29] MEDS: NEURONTIN PO SCH ×2 (08:27→19:53)
[2019-03-29] MEDS: PREDNISONE PO SCH (08:27)
[2019-03-29] MEDS: MIRALAX PO SCH ×2 (08:27→09:50)
[2019-03-29] MEDS: TOPROL XL PO SCH (08:27)
[2019-03-29] MEDS: LACTULOSE PO SCH ×2 (08:28→09:50)
[2019-03-29] MEDS: ZANAFLEX PO PRN (09:58)
[2019-03-29] MEDS: NORCO-7.5 PO PRN ×2 (09:59→19:53)
[2019-03-29] MEDS: TYLENOL PO PRN (12:49)
[2019-03-29 15:10] LABS: LYME DISEASE SCREEN SEE COMMENTS
[2019-03-29] MEDS: LOVENOX SUBQ SCH (17:40)
--- NOTE | 2019-03-29 18:20 | PROGRESS NOTE ---
DATE: 03/29/2019 SUBJECTIVE: This morning, Mr. Calle refers to be feeling the same. He cannot dorsal flex on the right lower extremity. He also complains of numbness in both lower extremities and the upper extremity, especially in the medial 3 fingers on both sides. OBJECTIVE: Vital signs: Blood pressure 134/82, pulse of 91, respiration is 10, temperature is 99.4 degrees. General: Mr. Calle is a 53-year-old, gentleman. He is in bed, in no distress. Mucosa is pink and moist. Anicteric. Acyanotic. Neck: Supple. Chest: Clear to auscultation. No crepitations. No rhonchi. Cardiovascular: Regular rate and rhythm. No murmurs, no rubs, no gallops. Gastrointestinal: Abdomen is soft, nontender. Bowel sounds present. Extremities: No pedal edema. Central nervous system: Patient is awake, alert, oriented. Clear speech. He is able to lift both extremities against gravity. He has good proximal strength on the left side. However, he is not able to dorsiflex nor plantar flex on the right. In terms of sensation, he refers not to feel very well in both feet, but his sensation is normal in the legs and the upper thighs. Vibration sense: He also has diminished vibration sense in the right foot, however, is generalized in both feet, is just worse on the right. ASSESSMENT AND PLAN: 1. Bilateral leg weakness, more so on the right foot than the left. 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 According to Mr. Calle, this has been going on since October, and it appears that he had robust improvement on higher doses of steroids than the lower dose. CK is slightly elevated, which makes polymyositis or dermatomyositis a possibility. However, these will also be associated with girdle weakness which he does not half. Neurology is on board and we will continue with their workup. 2. Fatty liver disease noted on ultrasound. The patient has been notified. 3. Obesity with body mass index of 33.6. 4. Elevated inflammatory markers of unclear etiology. We are going to pursue rheumatological and autoimmune processes. 5. Remote right lower extremity deep vein thrombosis. Patient has been treated with Xarelto, followed up with Dr. Castañeda. Apparently, all investigations were done and there was no cause. 6. Please refer to the details of the progress note that has been written up by the medical student. cc: Bruce Shaw MD
--- NOTE | 2019-03-29 18:58 | PROGRESS NOTE ---
DATE: 03/29/2019 SUBJECTIVE: Mr. Calle reports occasional burning in the feet and possibly some return of sensation in the legs. He has not noticed any improvement in motor function. He does not have any new complaint today. We reviewed history of tick exposure today. His history is that he had several tick bites mostly across the abdomen and found ticks attached, multiple tiny ticks a few months ago. Tube Cleaning Operator with him also had tick bites and did not get sick. The patient gives clear history that he was having some of his numbness and right leg pain prior to tick exposure. Tick exposure was not followed by rash or fever. Lyme disease test was negative. Other tick antibody titers are pending. He has had a few mildly elevated blood sugars. A1c is ordered. He is afebrile today. WBC count 10,000 yesterday. EMG study just completed shows evidence of peripheral neuropathy in the legs with very little difference between the left and right. Features are mostly consistent with axonal neuropathy. There was not evidence of myopathy. OBJECTIVE: On exam, he has good power proximally in the legs. He has distal weakness, grading 1/5 in the left anterior tibialis, maybe a little bit worse than yesterday. Right lower leg strength is about the same as yesterday. There is no fasciculation. Reflexes are absent at the ankles, 1+ at the left knee, 2+ at the right knee. Plantar response is silent bilaterally. He reports diminished pinprick appreciation along the medial aspect of the right lower leg and foot, and some recovery of sensation around the lateral aspect of the right lower leg compared to yesterday. He reports improved pinprick appreciation over the left foot and lower leg both medially and laterally compared to yesterday. He continues to have very poor proprioception at the great toe MTP joint, still worse on the right. Straight-leg raising is negative bilaterally. He has good drawing supervisor strength and good proximal power in the arms. As on exam yesterday, there were no definite findings above the waist. ASSESSMENT AND PLAN: Peripheral neuropathy, leg pain and weakness, numbness. I will review the EMG findings more carefully, but I do not have a definite diagnosis tonight. Extensive rheumatology workup is in progress. Cervical and thoracic MRI scans are scheduled. I will check on the imaging and lab reports tomorrow. Thanks for asking Neurology to see Mr. Calle. cc: Morenita Man III, MD MTDD
[2019-03-30] MEDS: NEURONTIN PO SCH ×4 (01:21→22:00)
[2019-03-30] MEDS: LACTULOSE PO SCH ×3 (01:21→22:03)
[2019-03-30] MEDS: DOXYCYCLINE PO SCH ×3 (01:21→08:02)
[2019-03-30] MEDS: NORCO-7.5 PO PRN ×4 (01:28→18:38)
[2019-03-30] MEDS: NS 1,000 ML IV SCH (07:02)
[2019-03-30 07:33] LABS: HEMOGLOBIN A1C 5.7 % (4.8-6.0)
[2019-03-30] MEDS: PREDNISONE PO SCH ×2 (07:36→08:02)
[2019-03-30] MEDS: TOPROL XL PO SCH ×2 (07:37→08:02)
[2019-03-30] MEDS: MIRALAX PO SCH (08:02)
[2019-03-30 09:47] LABS: HIV ANTIBODY SCREEN SEE COMMENTS
[2019-03-30] MEDS: ZANAFLEX PO PRN ×2 (09:52→18:38)
--- NOTE | 2019-03-30 10:06 | Diag Imaging Result Doc PS360 ---
EXAM: MRI BRAIN W/WO CONTRAST INDICATION: recurrent neurological symptoms COMPARISON: None. FINDINGS: There is no evidence of acute infarct. There is a small focus of subcortical T2/FLAIR hyperintensity in the medial right parietal lobe (see image 19, series 5). It is highly nonspecific but probably represents a small focus of white matter microangiopathy. The deep white matter signal is unremarkable, otherwise. There is no discrete intracranial mass, mass effect, or intracranial hemorrhage. There is a thin smooth enhancement of the dura in the posterior fossa and overlying the occipital lobes. This can be a normal finding in some individuals. However, it is also associated with cerebral hypotension. Dural metastases would be much less likely as there is no nodular character. No other abnormal enhancement is appreciated. The surrounding soft tissues and bony structures are essentially unremarkable. IMPRESSION: 1.Small focus of T2/FLAIR hyperintensity in the subcortical white matter of the right parietal lobe that is nonspecific but probably represents a focus of white matter microangiopathy. 2.Thin and smooth dural enhancement associated with the posterior fossa and overlying the occipital lobes. Please see above discussion. Electronically signed by Neftali Schulte 03/30/2019 10:04 AM
--- NOTE | 2019-03-30 10:14 | Diag Imaging Result Doc PS360 ---
EXAM: MRI C-SPINE W/WO CONTRAST INDICATION: r/o Multiple sclerosis TECHNIQUE: COMPARISON: None. FINDINGS: The osseous marrow signal is essentially unremarkable. The cervical spinal cord signal appears normal. There is dural enhancement at the base of the brain. Please see separate MRI brain report performed at the same time for further details. Surrounding soft tissues are grossly unremarkable. Segmental analysis of the cervical spine is detailed below. C1-2: Unremarkable. C2-3: Unremarkable. C3-4: Unremarkable. C4-5: There is a broad-based disc osteophyte complex causing mild effacement of the ventral thecal sac but no cord compression. There is moderate left neuroforaminal stenosis and mild right neuroforaminal stenosis. C5-6: There is a broad-based disc osteophyte complex causing mild effacement of the ventral thecal sac but no cord compression. There is bilateral mild to moderate foraminal stenosis. C6-7: There is a small broad-based disc osteophyte complex causing mild effacement of the ventral thecal sac but no cord compression. There is mild bilateral foraminal narrowing. C7-T1: Unremarkable. IMPRESSION: 1.Degenerative disc disease at several levels as described. 2.No abnormal spinal cord signal is appreciated. Electronically signed by Neftali Schulte 03/30/2019 10:12 AM
[2019-03-30] MEDS ORDERED: PREDNISONE PO ONE (10:27)
--- NOTE | 2019-03-30 10:30 | Diag Imaging Result Doc PS360 ---
EXAM: MRI THORACIC SPINE W/WO CON INDICATION: r/o Multiple sclerosis TECHNIQUE: COMPARISON: None. FINDINGS: The osseous marrow signal is unremarkable. There is a small thoracic cord syrinx that measures up to 2 mm in diameter. It extends from the T7 mid vertebral body level to the T8 mid vertebral body level. The thoracic cord signal is unremarkable, otherwise. There is no abnormal enhancement appreciated. Surrounding soft tissues are essentially unremarkable. Segmental analysis of the thoracic spine reveals no significant disc pathology, central canal stenosis, or neuroforaminal stenosis. IMPRESSION: Small thoracic cord syrinx as described. Unremarkable, otherwise. Electronically signed by Neftali Schulte 03/30/2019 10:28 AM
--- NOTE | 2019-03-30 10:38 | PROGRESS NOTE ---
DATE: 03/30/2019 SUBJECTIVE: Mr. Calle does not have any new complaints. He continues to have occasional intense right lower leg pain. He is sitting up and appears comfortable at this minute. OBJECTIVE: Nerve conduction studies showed evidence of peripheral neuropathy in the legs. There were mostly axonal features but some possible demyelinating features consistent with inflammation. There was not evidence of myopathy. Some of his early rheumatology lab work reports are back and there is a sedimentation rate of 93, elevated C-reactive protein 222.67. He has had his brain and upper spine imaging studies this morning with reports pending. He does not have definite upper motor neuron findings and I do not anticipate anything definitely remarkable in these imaging studies. PLAN: I do not have any new suggestion from Neurology standpoint. Further plans will depend on the rheumatology workup. Eventually, he may need either higher dose steroids or other immunosuppression management. Thanks for asking Neurology to see Mr. Calle. cc: MD LEIGH Gaston III
[2019-03-30] MEDS: DILAUDID IV PRN ×2 (14:20→22:00)
--- NOTE | 2019-03-30 15:06 | PROGRESS NOTE ---
DATE: 03/30/2019 This morning, Mr. Calle refers to be feeling pretty much the same. At the time of the encounter, the was there and the attending nurse, Ms. Aguilar, was also there. Mr. Calle refers to be continuing to have bilateral lower extremity numbness and cannot move the right foot at all. During the encounter at some point, he referred to have a sharp pain like a spasm that came from the mid right thigh all the way down to his foot. This lasted maybe a couple of seconds and then he requested his tizanidine and that improved the symptoms. OBJECTIVE: Current Vitals: Blood pressure was 118/72, pulse of 90, respirations 18, temperature 98.6 degrees. The patient was saturating 98% on room air. General: Mr. Calle is a 53-year- old gentleman. He was sitting up in a chair. He did not seem to be in any distress. HEENT: Mucosa is pink and moist. Anicteric. Acyanotic. Neck: Supple. Chest: Good air entry bilaterally. There were no crepitations, no rhonchi. Cardiovascular: Regular rate and rhythm. There are no murmurs, no rubs, no gallops. Abdomen: Soft, nontender. Bowel sounds present. Extremities: No pedal edema. SUPERVISOR DENTURE DEPARTMENT: Patient was awake, alert, oriented x3. Cognitive functions were all intact. The patient still has remarkably poor strength in the right foot. Good strength on the left. Upper extremities are unremarkable. Sensation also kind of diminished in both lower extremities. There was no cranial nerve abnormality that I could elicit. LABORATORY DATA: The ESR this morning is 93, CRP is up to 222.67. A hemoglobin is fine. A1c is 5.7. IMAGING STUDIES: Cervical spine MRI this morning shows some degenerative disk disease at several levels with some moderate left neuroforaminal stenosis on the middle right at C4-C5, but in all, there was no cord compression. The thoracic MRI shows small thoracic cord syrinx, but otherwise unremarkable. No cord compression. An MRI of the brain shows a dural enhancement which would be normal. Some subcortical white matter parietal changes, which is nonspecific. The neurology report today refers that the nerve conduction studies show evidence of peripheral neuropathy in the legs. There were mostly axonal features, but some possible demyelinating features consistent with inflammation. ASSESSMENT: 1. Bilateral leg weakness, worse on the right than the left. The EMG shows peripheral neuropathy, mainly axonal features. 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 All the rheumatological serologies are still pending. HIV is negative. RPR is negative. 2. Fatty liver disease on ultrasound noted. 3. Obesity with BMI of 33.6. 4. Elevated inflammatory markers concerning for some chronic autoimmune versus chronic inflammatory disorder that is yet to be unveiled. 5. History of right lower extremity deep vein thrombosis. So in general Mr. Calle's inflammatory markers are elevated. ABELARDO is negative. He continues to have bilateral lower extremity numbness with weakness on the right. The EMG and nerve conduction study seems to suggest an axonal polyneuropathy with some inflammatory demyelinating disease features as well. I spoke with Dr. Hinojosa today. He recommends to start Mr. Calle on 60 mg of steroids and have Mr. Calle see him Jimmie morning in his office, 04/04/2019. We will communicate this to Mr. Calle. Of note, all the tick and Lyme serologies have been negative so I have discontinued the antibiotics. cc: Bruce Shaw MD MTDD
[2019-03-30] MEDS: LOVENOX SUBQ SCH (16:51)
[2019-03-31] MEDS: NORCO-7.5 PO PRN ×2 (05:26→13:28)
[2019-03-31] MEDS: ZANAFLEX PO PRN (05:26)
[2019-03-31 07:41] LABS: IRON SATURATION 28 %; TIBC 165 ug/dL; TOTAL IRON 47 ug/dL (53-167); UNBOUND IRON 118 ug/dL (112-346)
[2019-03-31] MEDS: LACTULOSE PO SCH (08:05)
[2019-03-31] MEDS: MIRALAX PO SCH (08:05)
[2019-03-31 08:12] LABS: FERRITIN 521 ng/mL (30-400)
[2019-03-31] MEDS: NEURONTIN PO SCH (08:31)
[2019-03-31] MEDS: TOPROL XL PO SCH (08:31)
[2019-03-31] MEDS ORDERED: PREDNISONE PO SCH (09:00)
[2019-03-31] MEDS ORDERED: VITAMIN B-12 PO SCH (09:00)
[2019-03-31] MEDS ORDERED: FOLIC ACID PO SCH (09:00)
[2019-03-31 10:40] LABS: HEPATITIS PROFILE ACUTE SEE COMMENTS
[2019-03-31 12:00] VITALS: BP 142/96
--- NOTE | 2019-04-01 14:23 | DISCHARGE SUMMARY ---
ADMISSION DATE: 03/27/2019 DISCHARGE DATE: 03/31/2019 CONSULTATION DURING THIS ADMISSION: Neurology was consulted. Patient was seen by Dr. Man. INVASIVE PROCEDURES DONE DURING THIS ADMISSION: None. IMAGING STUDIES OF SIGNIFICANCE: 1. A CAT scan of the abdomen with IV contrast showed fatty infiltration of the liver, mild splenomegaly, constipation, colonic diverticulosis, and inguinal hernias. 2. A lumbar spine showed no fracture or disk herniation. An MRI of the lumbar spine showed mild lumbar spine spondylosis. 3. An echocardiogram showed an ejection fraction of 65%. No wall motion abnormality. Normal posterior and intraventricular septum. 4. A cervical spine MRI showed degenerative disk disease at several levels, but no abnormal cord signal appreciated. Thoracic spine MRI shows small thoracic cord syrinx. 5. A brain MRI showed a small focus hyperintensity in the subcortical white matter. 6. An EEG was done. Official report has not been populated in the EMR. However, per the Dr. Man note it appears that the nerve conduction studies showed evidence of peripheral neuropathy in the legs and they were mostly axonal features. ADMISSION DIAGNOSIS: 1. Hypertensive crisis. 2. Severe neuropathy with neuralgia. 3. Tick borne disease. DIAGNOSIS AT THE TIME OF DISCHARGE: 1. 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 2. 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 3. Fatty liver disease. 4. Morbid obesity with BMI of 33.6. 5. Elevated inflammatory markers. 6. Remote history of right lower extremity deep vein thrombosis. 7. Elevated blood pressure during the hospital course. 8. Folic acid deficiency and lower levels of B12. 9. Hypertension DISCHARGE MEDICATIONS: 1. Flexeril 5 mg 3 times per day. 2. Ibuprofen 800 b.i.d. 3. Folic acid 1 mg daily. 4. Gabapentin 300 b.i.d. 5. Hydrocodone 7.5 q. 6 h. p.r.n. 6. Prednisone 60 mg p.o. daily. 7. Pantoprazole 40 mg p.o. daily. 8. Cyanocobalamin 500 mcg p.o. daily. FOLLOW-UP: 1. Ms. Yuliet Mittal. 2. Dr. Hinojosa. 3. Dr. Castañeda/Dr. Fisher. CONSULTATION DURING THIS ADMISSION: Neurology was consulted. Patient was seen by Dr. Man. PRESENTING COMPLAINT: Pain in the right lower extremity. HISTORY OF PRESENTING COMPLAINT: Mr. Calle is a 53-year-old male who presented to the emergency department because of months of cramping and pains in the lower extremities, less so in the upper extremities. He also refers remarkable weakness in the right foot. Upon presenting to the emergency department in [place], he was found to be extremely hypertensive, was subsequently admitted to [facility] for further medical care. HOSPITAL COURSE: Mr. Calle was admitted initially to the ICU for adequate blood pressure control. He was subsequently transferred to the medical floor. During the hospital course, Mr. Calle was evaluated by Neurology and EMG with nerve conduction studies were also done which showed for most part axonal neuropathy, of which etiology was not completely clear. All his other neurological investigations were for most part unremarkable including an MRI of the brain, the cervical spine, thoracic and lumbar spine. Mr. Calle was evaluated also by physical therapy. At some point, neurology felt that Mr. Calle's presentation was more related to rheumatological disorder because of the elevated inflammatory markers. I reached out to Dr. Hinojosa and told him about the clinical presentation and the fact that sedimentation rate and CRP are extremely elevated and also the fact that the patient refers to have improved previously on higher doses of steroids and also the fact that his CK was slightly elevated. Dr. Hinojosa recommended that we re- initiate 60 mg of prednisone and get the patient to see him April 04 at 10 in the morning. The nurse has been informed about this conversation with Dr. Hinojosa and she will call to finalize the appointment. Mr. Calle has been in the hospital for the past 4 days. His neurological manifestations have not gotten any worse. His blood pressure, however, has been for the most part acceptable, sometimes a little elevated. Most other times it is within normal range. At some point, he even had a pressure of 94/54. His pulse rate has also been remarkably normal. I think he was slightly tachycardic and hypertensive on admission because of the pain. He has been advised, however, to follow up with his primary care for regular blood pressure monitoring. This morning, Mr. Calle refers to be feeling okay. No new complaints. Still has weakness in the right foot, but has not gotten any worse. He feels some cramps in both legs, which seems to have slightly improved with the higher doses of gabapentin. We think he is fairly stable to be discharged today to follow up with Dr. Hinojosa on Thursday. Before Mr. Calle got discharged, most of his investigations were not in, the results were not in yet. He was advised to follow up with Dr. Hinojosa and review the connective tissue disorders and he will also follow up with Dr. Man. Of note, Mr. 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 He follows up with Dr. Castañeda for that and he told me that all sorts of testing were run on him, but it came back negative. At any point, after Mr. Calle got discharged, we have the protein electrophoresis which shows that there is a monoclonal band of IgG kappa on the serum which is suggestive of a paraprotein abnormality. Mr. Calle will need to follow up with his patch setter/oncologist to make sure that the polyneuropathy is not related to a paraprotein disorder that has not been diagnosed. He would eventually need a 24 urine collection and possible bone marrow biopsy. He might also end up having either muscle or nerve biopsy at some point. All of these will be done by his outpatient management team with either Rheumatology or Oncology/Hematology. I reached out to his nurse, Ms. Aguilar, to make sure to notify Mr. Calle to follow up with oncology. Time spent for discharge is 37 minutes. cc: MD Sita Barlow MD Sammy Becdach, MD Heather Shah, MD I also called Ms Calle and updated her [facility] patient about the SPEP results and the need to follow up with Dr. Garrison. She had put me on a speaker phone so the patient could hear me as well. They both voice understanding. MTDD
--- NOTE | 2019-04-02 14:30 | PROVIDER DOCUMENTATION ---
This chart was entered by Michael Donnelly Scribe, acting as scribe for Burak Leroy MD. HPI-Musculoskeletal Pain/Inj - GENERAL Chief Complaint: Extremity Pain Stated Complaint: RIGHT SIDE PARALYSIS Time Seen by Provider: 03/27/19 12:15 Source: patient, family - HX OF PRESENT ILLNESS-MUSKULOSKELTAL Nature of Presenting Problem: 53 yom presents to the ed with c/o RLE pain , numbness. Pt was here on 03/23/19 for same complaint ultrasound was done and put on Flexril and Neurontin for p ain. stated pt had 2 blood clots in RLE and had ticks on RLE before. stated pt been taken off blood thinners recently. pt stated " the onset symptoms have been going on for 6 months." stated " pts hand and feet are numb and cold , having migraines." pt stated " can not feel anything in RLE but partially numb in LLE." pt stated " worse pain I've felt , worse than blood clots, pain l evels a 20." Quality of Pain: reports: aching, other (numbness) Severity in ED: mild Onset/Duration: other (onset for 6 months) Timing: still present Modifying Factors: worse with: movement Any recent injury?: No Locality of Occurance: Home Similar Symptoms Previously?: No Recently seen or treated by another doctor?: Yes (03/23/19 in ED ) - LOWER EXTREMITY PAIN/INJURY Lower Extremities Pain: leg: bilateral (Rt leg completely numb left partially numb) Context / Method of Injury: reports: other (onset for 6 months) Associated Symptoms: reports: numbness in legs/feet Review of Systems - Adult - REVIEW OF SYSTEMS - ADULT Constitutional: denies: chills, fever Eyes: denies: decreased vision, blurred vision, double vision Ears, Nose, Mouth & Throat: reports: no symptoms reported Cardiovascular: denies: chest pain, heart murmur, palpitations Respiratory: denies: shortness of breath, wheezing Gastrointestinal: denies: abdominal pain, constipation, diarrhea, nausea, vomiting Genitourinary: reports: no symptoms reported Musculoskeletal: reports: see HPI. denies: back pain, neck pain Integumentary: reports: no symptoms reported Neurological: reports: see HPI, numbness, other (pt has possible syncope episode in room earlier). denies: seizure, slurred speech Psychiatric: reports: no symptoms reported Endocrine: reports: no symptoms reported Hematologic/Lymphatic: reports: no symptoms reported Allergic/Immunologic: reports: no symptoms reported All Other Systems: Reviewed and Negative Past History - Adult - PAST MEDICAL HISTORY-ADULT Review of Records: reports: Old Records Reviewed, Nursing Assessment Review, Medications Reviewed, Social history reviewed & non-contributory. Major Childhood Illnesses: reports: denies history Cardiovascular: reports: denies history Respiratory: reports: denies history Gastrointestinal: reports: denies history Obstetrical/Gynecological: reports: denies history Genitourinary: reports: denies history Musculoskeletal: reports: denies history Neurological: reports: denies history Endocrine/Immune: reports: denies history Other Conditions: reports: denies history - IMMUNIZATION STATUS Childhood Immunizations: See Nurse Assessment Flu Vaccine: See Nurse Assessment - FAMILY HISTORY Family History: reviewed, not pertinent - SOCIAL HISTORY Smoking: denies Substance Use: denies Living Situation: family Physical Exam-Injury Related - Physical Exam-Injury Related Initial Vital Signs Reviewed: Yes General Appearance: appears well, alert, mild distress. negative: lethargic, slow to respond Eyes: PERRL/EOMI Head, Ears, Nose, Mouth & Throat: moist mucous membranes, normal ENT inspection, TMs normal Neck: non-tender, full range of motion, supple, normal inspection Respiratory: chest non-tender, lungs clear, normal breath sounds, no pleuratic chest pain, no respiratory distress, no accessory muscle use Cardiovascular: no edema, no gallop, no murmur, tachycardia (119) Abdominal Exam: normal bowel sounds, non tender, soft, no organomegaly, no pulsatile mass Male Genitalia: deferred Rectal Exam: deferred Hemoccult Exam: deferred Lymphatic: no adenopathy Back Exam: normal inspection, no CVA tenderness, no vertebral tenderness Extremity: other (bilateral feet are cold to touch on exam / Rt LE has good circulation on exam) Integumentary: normal color, warm/dry Neurologic: grossly normal, no motor/sensory deficits Psych/Mental Status: normal thought content, normal thought process, oriented x 3, anxious (pt on exam can not stay still , keeps moving everywhere.) - Glascow Coma Score Best Eye Response ([place]am[place]): (4) open spontaneously Best Verbal Response ([place]): (5) oriented Best Motor Response ([place]): (6) obeys commands [place] Total: 15 Progress - PLAN OF CARE/RESULTS Result Diagrams: 03/28/19 04:00 03/28/19 04:00 - EKG 1 Time of EKG reading by physician:: 12:13 EKG Read and Signed by:: Burak Leroy EKG Interpretation (*Must complete 3 of following elements*): Normal Rate: 113 Rhythm: Sinus tachycardia [place]: normal QRS: normal GA Interval: normal ST Wave: normal - CONSULTS/PCP/HOSPITALIST Notification #1 *Consult/PCP/Hospitalist*: Dr. Leroy on the phone with Time Discussed: 14:05 (pts condtion ) Departure - Departure Date of Disposition Decision: 03/27/19 Time of Disposition Decision: 16:30 DIAGNOSIS: Hypertensive crisis, Neuropathy Leg pain Qualifiers: Laterality: right Qualified Code(s): M79.604 - Pain in right leg Back pain Qualifiers: Back pain location: back pain in unspecified location Chronicity: unspecified Back pain laterality: unspecified Qualified Code(s): M54.9 - Dorsalgia, unspecified Disposition: ADMITTED INPATIENT 09 Certified Medical Emergency: Emergent Condition: Stable - Critical Care Note This patient required my direct & personal management of CC.: No Attestation - Physician/ LAWRENCE Attestation Patient care was provided by Advanced Practice Provider:: No The physician spent face to face time with patient:: Yes Advanced Practice Provider documentation review:: Supervising physician onsite and consulted in the evaluation and care of this patient. The physician did have a face to face encounter with the patient. This chart was documented by the indicated scribe, (Michael Donnelly Scribe) and accurately reflects the services I performed and decisions made by me, Burak Leroy MD, as attested by the provider's signature.
== END 2019-03-31 13:31 | disposition home health service (06) | DRG 305 ==
LOC: P.ED 11:36 → SUATTDRO 11:37 → ICU 11:37 → 4N 03-28 11:04
PROVIDERS: ATTEND Internal Medicine

== ENCOUNTER 2019-07-11 09:12 | Inpatient (IN) ==
[2019-07-11] MEDS ORDERED: NS 1,000 ML IV ONE (09:55)
--- NOTE | 2019-07-11 10:01 | PROVIDER DOCUMENTATION ---
HPI-General Adult - General Chief Complaint: Extremity Pain Stated Complaint: RT FOOT TOE PAIN Time Seen by Provider: 07/11/19 09:32 Source: patient Allergies/Adverse Reactions: Patient Allergies Allergy/AdvReac Type Severity Reaction Status Date / Time No Known Allergies Allergy Verified 07/11/19 12:21 Home Medications: Home Medication List Medication Instructions Recorded Confirmed Last Taken Type Cyanocobalamin [Vitamin B-12] 500 microgm PO DAILY #120 tab 03/31/19 07/11/19 07/10/19 08:00 Rx Folic Acid 1 mg PO DAILY #120 tab 03/31/19 07/11/19 07/10/19 08:00 Rx Gabapentin [Neurontin] 400 mg PO BID 07/11/19 07/11/19 07/10/19 08:00 History LISINOpril [Prinivil] 20 mg PO DAILY 07/11/19 07/11/19 07/10/19 08:00 History Methotrexate 0.8 ml SQ DIRECTED 07/11/19 07/11/19 07/06/19 History Prednisone 80 mg PO DAILY 07/11/19 07/11/19 07/10/19 08:00 History Rivaroxaban [Xarelto] 20 mg PO DAILY 07/11/19 07/11/19 07/11/19 08:00 History - History of Present Illness -Gen Adult Nature of Presenting Problems: Patient is a 54 yom who c/o right 2nd toe erythema x 2 days that is worsening and spreading down right foot. 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 Denies injury, fever or any other complaints. Hx of neuropathy in feet, sensation normal for p t. Pt non-toxic. Review of Systems - Adult - REVIEW OF SYSTEMS - ADULT Constitutional: reports: no symptoms reported Eyes: reports: no symptoms reported Ears, Nose, Mouth & Throat: reports: no symptoms reported Cardiovascular: reports: no symptoms reported Respiratory: reports: no symptoms reported Gastrointestinal: reports: no symptoms reported Genitourinary: reports: no symptoms reported Musculoskeletal: reports: see HPI Integumentary: reports: see HPI Neurological: reports: no symptoms reported Psychiatric: reports: no symptoms reported Endocrine: reports: no symptoms reported Hematologic/Lymphatic: reports: no symptoms reported Allergic/Immunologic: reports: no symptoms reported All Other Systems: Reviewed and Negative Past History - Adult - PAST MEDICAL HISTORY-ADULT Review of Records: reports: Nursing Assessment Review, Medications Reviewed, Social history reviewed & non-contributory. Major Childhood Illnesses: reports: denies history Cardiovascular: reports: HTN Respiratory: reports: denies history Gastrointestinal: reports: denies history Obstetrical/Gynecological: reports: denies history Genitourinary: reports: denies history Musculoskeletal: reports: denies history Neurological: reports: other (neuropathy) Endocrine/Immune: reports: other (GPA vasculitis, autoimmune) Other Conditions: reports: denies history - PRIOR SURGERIES/PROCEDURES Surgical/Procedure History: reports: reviewed, not pertinent - IMMUNIZATION STATUS Childhood Immunizations: See Nurse Assessment Flu Vaccine: See Nurse Assessment - FAMILY HISTORY Family History: reviewed, not pertinent - SOCIAL HISTORY Smoking: non-smoker Physical Exam-General - PHYSICAL EXAM-ADULT Initial Vital Signs Reviewed: Yes - CONSTITUTIONAL General Appearance: alert, no apparent distress. negative: lethargic, slow to respond - EYES Eyes: PERRL/EOMI - HEAD, EARS, NOSE, MOUTH & THROAT HENMT: normocephalic/atraumatic - NECK Neck: full range of motion, supple, normal inspection - RESPIRATORY Respiratory: chest non-tender, lungs clear, normal breath sounds, no pleuratic chest pain, no respiratory distress, no accessory muscle use - CARDIOVASCULAR Cardiovascular: normal peripheral pulses, regular rate, rhythm, no edema, no gallop, no murmur - GASTROINTESTINAL (ABDOMEN) Abdominal Exam: normal bowel sounds, non tender, soft - MUSCULOSKELETAL Back Exam: normal inspection Extremity: normal range of motion, non-tender, erythema (entire right 2nd toe and dorsal foot below 2nd toe), swelling (right 2nd toe). negative: pulse deficit Peripheral Pulses: dorsalis-pedis (R): 3+ - SKIN Integumentary: warm/dry, other (right 3rd toe completely necrotic with cracked skin noted to medial side, right 2nd toe is erythemic but has normal capillary refill. 3+ pedal and medial malleolar pulses noted to right foot). negative: jaundice, mottled - NEUROLOGIC Neurologic: grossly normal, no motor/sensory deficits - PSYCHIATRIC Psych/Mental Status: normal mood/affect, normal thought content, normal thought process, oriented x 3 Progress - PLAN OF CARE/RESULTS Progress/Plan/Lab Results: Vital Signs - 8 hr 07/11/19 09:18 Temperature 98.5 F Pulse Rate 120 H Respiratory Rate 18 Blood Pressure 159/98 O2 Sat by Pulse Oximetry 98 Laboratory Results - last 24 hr 07/11/19 09:31 POC Glucose 98 D Orders Category Date Time Status NEWS Score 2-4:Order NEWS Lactate Series NOW Care 07/11/19 09:22 Active FOOT COMPLETE RIGHT [RAD] Stat Exams 07/11/19 09:55 Ordered TOE(S)-RIGHT [RAD] Stat Exams 07/11/19 09:55 Ordered BLOOD CULTURE [BLDCUL] Stat Lab 07/11/19 09:55 Uncollected CBC WITH DIFF [HEME] Stat Lab 07/11/19 09:55 Ordered CK PROFILE [SP CHEM] Stat Lab 07/11/19 09:55 Uncollected COMPREHENSIVE METABOLIC PANEL [CHEM] Stat Lab 07/11/19 09:55 Uncollected LACTATE, PLASMA [CHEM] Stat Lab 07/11/19 09:55 Uncollected PROTIME WITH INR [COAG] Stat Lab 07/11/19 09:55 Uncollected PTT [COAG] Stat Lab 07/11/19 09:55 Uncollected TROPONIN T HIGH SENSITIVITY Stat Lab 07/11/19 09:55 Uncollected 0.9% Sodium Chloride Inj [Ns] 1,000 ml Med 07/11/19 09:55 Active IV 999 mls/hr At recheck pts was concerned about follow up. Dr Rowe was consulted and advised to get an [place] and he would come to see pt. Result Diagrams: 07/11/19 09:55 07/11/19 10:23 - REASSESSMENT Reassessment #1 Time Reassessed: 12:30 Status: other (Dr. Guan paged.) Reassessment #2 Time Reassessed: 14:11 Status: other (Discussed results, conversation with Dr. Guan's office, and dc plan of care with pt who is in agreement. Re-evaluation reveals pedal pulses still 3+, no streaking. Instructed pt to return to the ED for fever > 100.5, streaking, or any other new or worsening s/s. Outlined erythemic borders with skin marker. Pt verbalized understanding of dc instructions.) - XRAY 1 XRAY: Right XRAY Study: Foot ([facility] - [address], [address], [place] [address] [place] [id number] Department of Imaging Patient: NANCY ESTEVEZADM Date: 07/11/19MR#: [id number] : 1965ADM Status: PRE ERAcct#: [id number] Age/Sex: 54/MRoom/Bed: Loc: ED Ordering Physician: Nirmala Harding Family Physician: JOSE NINO MD Reason for Procedure: R foot erythema, cellulitis ___ Signed FOOT COMPLETE RIGHT - 07/11/2019 INDICATION: R foot erythema, cellulitis TECHNIQUE: Three views COMPARISON: None FINDINGS: Bones are intact and normally aligned. Soft tissues are clear. There are small degenerative heel spurs. There is also some mild degenerative spurring at the mid tarsal joints. IMPRESSION: No acute disease. Electronically signed by Trell Mota 07/11/2019 10:16 AM 07/11/19 1016 Interpreting Physician: Trell Mota MD Dictated Date/Time: 07/11/19 1016 cc: Nirmala Harding; JOSE NINO MD) 2 XRAY: Right (Toes: [facility] - [address], [address], [place] [address] [address] Department of Imaging Patient: NANCY ESTEVEZADM Date: 07/11/19MR#: [id number] : 1965ADM Status: PRE ERAcct#: [id number] Age/Sex: 54/MRoom/Bed: Loc: ED Ordering Physician: Nirmala Harding Family Physician: OJSE NINO MD Reason for Procedure: R 2nd toe erythema- cellulitis Signed TOE(S)-RIGHT - 07/11/2019 INDICATION: R 2nd toe erythema- cellulitis TECHNIQUE: Three views COMPARISON: None FINDINGS: Bones are intact and normally aligned. Joint spaces and soft tissues are clear. IMPRESSION: Ne gative exam. Electronically signed by Trell Mota 07/11/2019 10:16 AM 07/11/19 1016 Interpreting Physician: Trell Mota MD Dictated Date/Time: 07/11/19 1015 cc: Nirmala Harding; JOSE NINO MD) - CONSULTS/PCP/HOSPITALIST Notification #1 *Consult/PCP/Hospitalist*: JENNIFER Hughes with Dr. Guan Time Discussed: 13:40 Reason/Comments: R foot cellulitis, worsening toe necrosis Consult Disposition: F/U in office (Discussed case with JENNIFER Hughes of Dr. Guan. Ellen notified of WBC count, pt presentation, VS in the ER, and that pt states necrosis is worsening. Ellen recommends outpatient f/u in their office and po abx.) #2 Consult: Ángela RODRIGUEZ for Hospitalist Time Discussed: 17:13 Consult Disposition: Will see in ED, Admit Departure - Departure Date of Disposition Decision: 07/11/19 Time of Disposition Decision: 13:31 DIAGNOSIS: Vasculitis, Toe necrosis Cellulitis Qualifiers: Site of cellulitis: extremity Site of cellulitis of extremity: toe Laterality: right Qualified Code(s): L03.031 - Cellulitis of right toe Disposition: ADMITTED INPATIENT 09 Certified Medical Emergency: Emergent Condition: Fair Additional Instructions: ED Follow Up Instructions: You have been treated by a care provider in the Emergency Department. These instructions are being provided to you so you can have an understanding of how to care for yourself upon discharge. Upon discharge from the Emergency Department, you are responsible for making arrangements for follow-up care by a physician of your choice. Take all prescribed medications as directed. Return to the Emergency Department immediately for any new or worsening sympto ms. You may call the Physician Referral phone number at [phone] to obtain a list of Physicians who are taking new patients. Referrals and Follow-Ups: JOSE NINO MD [Primary Care Provider] - Luis Castañeda MD [ACTIVE STAFF PHYSICIAN] - Call for Appoint. 1-2days Work Excuses: Return to School/Parent Work Discharge Education: Cellulitis, Adult, Vasculitis - Critical Care Note This patient required my direct & personal management of CC.: No Attestation - Physician/ LAWRENCE Attestation Patient care was provided by Advanced Practice Provider:: Yes Advanced Practice Provider:: Nirmala Harding Advanced Practice Provider documentation review:: The Mid-level provider documentation, treatment plan and medical decision making was reviewed by the physician who agrees with all treatment and medical decision making by the MLP. The physician spent face to face time with patient:: No Advanced Practice Provider documentation review:: Supervising physician onsite and consulted in the evaluation and care of this patient. The physician did not have a face to face encounter with the patient.
--- NOTE | 2019-07-11 10:18 | Diag Imaging Result Doc PS360 ---
TOE(S)-RIGHT - 07/11/2019 INDICATION: R 2nd toe erythema- cellulitis TECHNIQUE: Three views COMPARISON: None FINDINGS: Bones are intact and normally aligned. Joint spaces and soft tissues are clear. IMPRESSION: Negative exam. Electronically signed by Trell Mota 07/11/2019 10:16 AM
--- NOTE | 2019-07-11 10:19 | Diag Imaging Result Doc PS360 ---
FOOT COMPLETE RIGHT - 07/11/2019 INDICATION: R foot erythema, cellulitis TECHNIQUE: Three views COMPARISON: None FINDINGS: Bones are intact and normally aligned. Soft tissues are clear. There are small degenerative heel spurs. There is also some mild degenerative spurring at the mid tarsal joints. IMPRESSION: No acute disease. Electronically signed by Trell Mota 07/11/2019 10:16 AM
[2019-07-11 10:46] LABS: BASO# 0.03 X1000 (0.0-0.2); BASO% 0.2 % (0.0-0.8); EOS# 0.04 X1000 (0.0-0.7); EOS% 0.3 % (0.0-10.0); HEMATOCRIT 43.6 % (42.0-52.0); HEMOGLOBIN 13.8 g/dL (14.0-18.0); IMM GRAN# 0.26 X1000 (0.0-0.04); IMM GRAN% 2.1 % (0.0-0.5); LYMPH% 20.6 % (20.5-51.1); MCH 28.6 PG (27-31); MCHC 31.7 g/dL (33-37); MCV 90.5 FL (81-99); MONO% 6.6 % (1.7-9.3); MPV 9.4 FL (7.4-10.4); NEUT# 8.51 X1000 (1.4-6.5); NEUT% 70.2 % (42.2-75.2); PLT 204 X1000 (130-400); RBC 4.82 XMIL (4.7-6.1); WBC 12.14 X1000 (4.8-10.8)
[2019-07-11 10:53] LABS: INR 1.61; PROTIME 19.5 Seconds (11.0-16.0)
[2019-07-11 10:54] LABS: PTT 39.1 Seconds (22.3-41.8)
[2019-07-11 10:59] LABS: AGAP 12; ALB/GLOB RATIO 1.6; ALBUMIN 3.6 g/dL (3.5-5.0); ALKALINE PHOSPHATASE 52 U/L (32-122); BUN 19 mg/dL (8-22); CALCIUM 8.9 mg/dL (8.8-10.2); CHLORIDE 102 mmol/L (98-107); CK PROFILE 85 U/L (24-204); COSMO 285; CREATININE 0.8 mg/dL (0.7-1.2); ESTIMATED GFR > 60; GLUCOSE 92 mg/dL (70-104); GOT 21 U/L (10-34); GPT 33 U/L (10-44); POTASSIUM 4.5 mmol/L (3.5-5.1); SODIUM 142 mmol/L (136-145); TCO2 28 mmol/L (25-35); TOTAL BILIRUBIN 0.21 mg/dL (0.20-1.00); TOTAL PROTEIN 5.8 g/dL (6.3-8.3)
[2019-07-11] MEDS ORDERED: CLINDAMYCIN 600 MG/NS 600 MG/50 ML IVPB IV ONE (12:08)
[2019-07-11] MEDS ORDERED: CLINDAMYCIN 600 MG/D5W 600 MG/50 ML IVPB IV ONE (12:12)
[2019-07-11] MEDS ORDERED: VANCOMYCIN IV PER PHARMACY MISC SCH (18:00)
[2019-07-11] MEDS ORDERED: PRINIVIL PO ONE (18:31)
--- NOTE | 2019-07-11 20:31 | GENERAL SURGERY CONSULTATION ---
DATE: 07/11/2019 REQUESTING PHYSICIAN: Emergency Department. REASON FOR CONSULTATION: Right third toe ischemia. HISTORY: He has underlying vasculitis for which he has been seen by Dr. Castañeda and treated with methotrexate but apparent has gotten worse. He has had previous lower extremity arterial studies that showed poor circulation to his toes, but he has a palpable posterior tibial pulse. I was asked to weigh an opinion. PAST MEDICAL HISTORY: Hypertension. GPS. PAST SURGICAL HISTORY: None. SOCIAL: Nonsmoker. ALLERGIES: None. HOME MEDICATIONS: Reviewed. Of note he is on methotrexate. FAMILY HISTORY: Reviewed with patient, noncontributory. REVIEW OF SYSTEMS: A full 14 systems reviewed and negative except as specified in HPI. PHYSICAL EXAMINATION: Vital Signs: Patient is currently afebrile. His vital signs stable. General: No acute distress. Alert, interactive, male, looks stated age. HEENT: Normocephalic, atraumatic. Pupils equal, round, reactive to light. Mucous membranes moist. Oropharynx benign. Neck: Supple. Trachea midline. Cardiovascular: Regular rate and rhythm. Lungs: Grossly clear. Abdomen: Soft, nontender, nondistended. Extremities: Multiple areas on his fingers that seem to have poor perfusion. On his right foot, the third toe is essentially with dry gangrene. Vascular; palpable posterior tibial bilaterally. Neurologic: Some footdrop noted on the right side. Skin: Ischemia as noted above. LABORATORY: White blood count 14. Remainder of labs reviewed. Imaging reviewed. ASSESSMENT AND PLAN: A 54-year-old with dry gangrene of right third toe. At this time, I suspect he needs an amputation. Discussed with him the risks, benefits, alternatives of the procedure. Discussed the possibility of poor wound healing. We will plan on surgical intervention tomorrow. He is to be admitted by the hospitalist. cc: MD LEIGH Manzo
--- NOTE | 2019-07-11 20:38 | HISTORY AND PHYSICAL ---
CHIEF COMPLAINT: Painful toe and necrotic fingers. HISTORY OF PRESENT ILLNESS: This is a 54-year-old gentleman who carries a diagnosis of GPA granulomatosis with polyangiitis. He was treated. He has been on high-dose steroids and methotrexate per Dr. Hinojosa, but the lesion on his toe has progressed. The 2 on his fingers have lost a little bit. Initially, the diagnosis was in October of 2018. He had areas in his foot and eye, and then in March he had acute episode with loss of feeling in his feet, paralysis, ended up with the diagnosis of GPA. He has been on increasing doses of methotrexate weekly. He is up to 0.8 mg. He is on 80 mg of prednisone, and he is also on Xarelto. Today, he is going to be admitted for an ischemic ulcer on his foot and amputation. PAST MEDICAL HISTORY: 1. Asthma. 2. Hypertension, which is not well controlled. PAST SURGICAL HISTORY: Negative. FAMILY HISTORY: Positive for breast cancer in mother. Head and neck cancer father. SOCIAL HISTORY: No ethanol, no tobacco. ALLERGIES: No known drug allergies. MEDICATIONS: Methotrexate 0.8 weekly, Neurontin 400 b.i.d., prednisone 80 daily, lisinopril 20 daily, Xarelto 20 daily, folic acid 1 daily, vitamin B12. PHYSICAL EXAMINATION: VITAL SIGNS: Blood pressure 166/115, heart rate 111, respiratory rate of 18, temperature was 98.5 degrees. CARDIOVASCULAR: Regular rate and rhythm. PULMONARY: Bilateral breath sounds clear to auscultation. GASTROINTESTINAL: Soft, nontender, nondistended. Bowel sounds are positive. NEUROLOGIC: Nonfocal. SKIN: Was clean, dry, intact except on his fingers, he has a small area of gangrene on the tip of his index finger and the tip of his middle finger, but they look localized. There is no evidence of cellulitis at that point. Around his toe, he has got a very large area of necrosis pretty much from the top of the toe to the base of the toe on the second toe on the right foot with associated erythema and dusky coloring, which may be progressing to cellulitis and/or wet gangrene. IMPRESSION: 1. Ischemic foot with antibiotics. We will continue antibiotics, vancomycin. He has been placed on clindamycin. I think that is fine to continue for the time being. Plan will be for amputation of the toe and debridement. This will be per Dr. Rowe tomorrow. 2. Granulomatosis polyangiitis (GPA). We will continue prednisone and his methotrexate for the time being. We will get a consult from Dr. Hinojosa and follow closely. They are requesting Dr. Castañeda to be involved to. I am not quite sure. I guess he handles the anticoagulation issue. 3. Hypertension, which is really not well-controlled at all. We will add medications to assist with elevations of blood pressure. He may need further adjustments in his home regimen as well. cc: MD Raymond Plummer MD Vijayanarayana R. Jampala, MD
[2019-07-11] MEDS ORDERED: ZOFRAN IV PRN (20:53)
[2019-07-11] MEDS ORDERED: VANCOMYCIN 2 GM in NS 500 ML IV ONE (21:00)
[2019-07-12] MEDS: NORCO-7.5 PO PRN ×3 (01:16→17:22)
[2019-07-12] MEDS: NEURONTIN PO SCH ×3 (01:16→21:57)
[2019-07-12 07:37] LABS: BASO# 0.02 X1000 (0.0-0.2); BASO% 0.2 % (0.0-0.8); EOS# 0.01 X1000 (0.0-0.7); EOS% 0.1 % (0.0-10.0); HEMATOCRIT 41.7 % (42.0-52.0); IMM GRAN# 0.25 X1000 (0.0-0.04); IMM GRAN% 2.1 % (0.0-0.5); LYMPH# 1.69 X1000 (1.2-3.4); LYMPH% 14.1 % (20.5-51.1); MCH 28.6 PG (27-31); MCHC 31.2 g/dL (33-37); MCV 91.9 FL (81-99); MONO% 6.7 % (1.7-9.3); MPV 9.2 FL (7.4-10.4); NEUT# 9.23 X1000 (1.4-6.5); NEUT% 76.8 % (42.2-75.2); PLT 203 X1000 (130-400); RBC 4.54 XMIL (4.7-6.1); RDW 18.6 % (11.5-14.5)
[2019-07-12 08:08] LABS: AGAP 10; BUN 16 mg/dL (8-22); CALCIUM 8.9 mg/dL (8.8-10.2); CHLORIDE 99 mmol/L (98-107); COSMO 276; CREATININE 0.8 mg/dL (0.7-1.2); ESTIMATED GFR > 60; GLUCOSE 113 mg/dL (70-104); POTASSIUM 4.2 mmol/L (3.5-5.1); SODIUM 137 mmol/L (136-145); TCO2 28 mmol/L (25-35)
[2019-07-12] MEDS: VITAMIN B-12 PO SCH (08:56)
[2019-07-12] MEDS: PRINIVIL PO SCH (08:56)
[2019-07-12] MEDS: FOLIC ACID PO SCH (08:56)
[2019-07-12] MEDS: PREDNISONE PO SCH (08:57)
--- NOTE | 2019-07-12 09:04 | GENERAL SURGERY PROGRESS NOTE ---
DATE: 07/12/2019 SUBJECTIVE: Patient doing okay. He is a little bit nauseated but otherwise doing okay. OBJECTIVE: Vital Signs: Patient is currently afebrile. Vital signs are stable. General: No acute distress. HEENT: Normocephalic, atraumatic. Pupils equal, round, reactive to light. Mucous membranes moist. Oropharynx benign. Neck: Supple. Trachea midline. Cardiovascular: Regular rate and rhythm. Lungs: Grossly clear. Abdomen: Soft, nontender, nondistended. Extremities: Ischemia noted to the right 3rd toe appears to have worsened slightly since even yesterday. Vascular: No change. ASSESSMENT AND PLAN: A 54-year-old gentleman with dry gangrene in the right 3rd toe. Right 3rd toe gangrene. At this time, we will plan on surgical intervention today. Discussing the risks, benefits and alternatives including the difficulty with wound healing. He is aware. We will plan on doing the procedure today. cc: Suresh Rowe MD
[2019-07-12] MEDS: TYLENOL PO PRN (11:28)
[2019-07-12] MEDS ORDERED: VERSED ONE (13:36)
[2019-07-12] MEDS ORDERED: DIPRIVAN 1% ONE (13:54)
[2019-07-12] MEDS ORDERED: XYLOCAINE-MPF 2% ONE (13:55)
[2019-07-12] MEDS ORDERED: FENTANYL ONE (14:31)
--- NOTE | 2019-07-12 14:49 | PROGRESS NOTE ---
DATE: 07/12/2019 SUBJECTIVE: Mr. Calle is a 54-year-old man who has been diagnosed with granulomatosis with polyangiitis back in October 2018. The GPA has been complicated with gangrene of the right 3rd toe, and previous necrotic tissue on the tips of his fingers. He reports that they usually scab up and go peel off with no problem. He has been seeing a civil preparedness officer in town regularly. He takes methotrexate, steroids, and Xarelto regularly to manage his symptoms. Per the , he has a history of nose bleeds and smelly dark urine that was noted back in October. He has also been treated for high blood pressure. The doctor had been weaning him off his Xarelto starting in May and that is when the symptoms in his toe got worse. He is scheduled today for a toe amputation with Dr. Rowe. He presents with infection of the right 3rd toe gangrenous infection. and son are the bedside at the time of this encounter. Of note, his previous history includes reaction to tramadol where he says he feels nauseous and really bad. He is fine on Dilaudid or [place]. VITAL SIGNS: Blood pressure is 134/85, heart rate is 100, temperature today is 98.1 orally, oxygen saturation is 96% on room air. Respiratory rate has not recorded. Urine voided 500 mL and recorded since yesterday in the office. PHYSICAL EXAMINATION: General: He is up in bed, in no distress. HEENT: Mucosa is moist. Eyes are large. Cardiovascular: S1, S2 appreciated. No regular rate and rhythm. No murmurs, gallops, or rubs. Lungs: Clear to auscultation bilaterally. Gastrointestinal: Abdomen is soft, nontender, nondistended. No lesions. Bowel sounds are present. Dermatologic: On his upper back, he has multiple erythematous red spots and also a couple spots on the anterior abdomen. Spots are About 1 cm in diameter. Extremities: 2+ radial pulses bilaterally. His right finger has 2 lesions at the tip of the index and middle fingers that are black, look like they will peel off eventually. No extension into the finger itself just at the soft tissue at the finger tip. Legs, his pedal pulse is 2+ bilaterally. The right 3rd toe is black and necrotic. There is a pen palmer that has outlined an erythematous area. There is swelling in all of his toes. LABS: His white blood cell count is 12, hemoglobin is 13, hematocrit is 41.7, platelet is 203,000. Chemistries: Sodium 137, potassium is 4.2, chloride is 99, bicarbonate is 28, BUN is 16, creatinine 0.8, glucose is 113, calcium is 8.9. ASSESSMENT: A 54-year-old man with gangrene of his 3rd right toe: 1. Granulomatous with polyangiitis complicated with gangrene of the toe. 2. Essential hypertension, treated with antihypertensive. 3. Anemia. 4. Leukocytosis. PLAN: 1. Amputation of the toe today with surgery. 2. Continue preoperative antibiotics; await culture results to tailor down abx. 3. Continue at home methotrexate and steroid regimen. 4. Consult his civil preparedness officer to ask about restarting Xarelto or other management for his symptoms. Dictated by Tasneem Zimmerman, Medical Student for Pete Eugene MD This chart was documented by, Tasneem Zimmerman, Medical Student and accurately reflects the services performed, treatment plan and medical decisions as attested by the providers signature Pete Eugene MD. cc: Pete Eugene MD [facility]
[2019-07-12] MEDS: VANCOMYCIN 2 GM in NS 500 ML IV SCH (15:03)
[2019-07-12] MEDS ORDERED: NORCO-7.5 ONE (15:57)
--- NOTE | 2019-07-12 17:12 | OPERATIVE NOTE ---
PROCEDURE DATE: 07/12/2019 PREOPERATIVE DIAGNOSIS: Dry gangrene of right 3rd toe. POSTOPERATIVE DIAGNOSIS: Dry gangrene of right 3rd toe. PROCEDURE: Distal ray amputation of right 3rd toe. SURGEON: Suresh Rowe MD. DIGITAL SOLUTION ARCHITECT: None. ANESTHESIA: General endotracheal. FINDINGS: Dry gangrene. COMPLICATIONS: None at time of dictation. ESTIMATED BLOOD LOSS: 10 mL. SPECIMENS REMOVED: Toe. BRIEF HISTORY: A 54-year-old gentleman with underlying vasculitis, felt that he had continued growth of his toe, and it was not going to heal. We discussed amputation. We also discussed the difficulty with wound healing given his vasculitis. All questions answered. DESCRIPTION OF PROCEDURE: After informed consent was obtained, the patient brought to the operative theatre, transferred to the operating table and placed in the supine position. General endotracheal anesthesia was then performed without complication. A formal time- out was then performed confirming patient, date and procedure. All were in agreement. At that time, attention given to the toe. The right toe had been prepped and draped. After the time- out, we turned our attention to the right 3rd toe. We made an incision on top of the toe right at the PIP joint to the bone. We took the proximal flange all the way to the metatarsal interphalangeal joint, and removed it in it's entirety. We Bovied the synovial part of the metatarsal. We then irrigated out the wound, and then closed it with 3-0 Vicryl and 3-0 nylon. There was at least decent blood supply noted, and some bleeding noted but again there was some tissue noted in the wound. None apparent, just purulence encountered. The patient tolerated the procedure well and was transferred to the recovery room. cc: Suresh Rowe MD [facility]
[2019-07-13] MEDS: TYLENOL PO PRN (04:44)
--- NOTE | 2019-07-13 06:37 | GENERAL SURGERY PROGRESS NOTE ---
DATE: 07/13/2019 SUBJECTIVE: Patient seems to be doing well. His amputation site has a dressing that intact. He has been hemodynamically stable. PLAN: We will continue to monitor him and see how he does and take his dressing down in the next 48 hours. cc: Suresh Rowe MD
--- NOTE | 2019-07-13 08:04 | VASCULAR LAB ---
PROCEDURE NAME: Arterial Bilateral Legs - 07/11/2019 REQUESTING PHYSICIAN: Dr. Rowe. BARREL LEVELER: Criselda. INDICATION: Third toe discoloration bilaterally. FINDINGS: Segmental pressures are as follows: Right brachial 159 and left 167, right distal thigh 139 and left 142, right popliteal 211 and left 207, right dorsalis pedis 193 and left 172, right posterior tibial 207 and left 215, right great toe 80 and left 103, right LILIANA 1.24 and left 1.29, right TBI 0.48 and left 0.62. Waveform analysis: Waveforms appear to be intact to the level of the ankle. Essentially biphasic if not triphasic waveform to the level of the ankle. There is very little flow noted in the toes bilaterally. This continues for all toes to the lower extremity. When compared to previous study, this is essentially stable. INTERPRETATION: Likely distal peripheral small vessel disease affecting both feet. This corresponds to the patient's known vasculitis. cc: Suresh Rowe MD
[2019-07-13 08:17] LABS: BASO# 0.02 X1000 (0.0-0.2); BASO% 0.2 % (0.0-0.8); EOS# 0.05 X1000 (0.0-0.7); EOS% 0.4 % (0.0-10.0); HEMATOCRIT 40.9 % (42.0-52.0); HEMOGLOBIN 12.6 g/dL (14.0-18.0); IMM GRAN# 0.18 X1000 (0.0-0.04); IMM GRAN% 1.5 % (0.0-0.5); LYMPH# 1.85 X1000 (1.2-3.4); LYMPH% 15.8 % (20.5-51.1); MCH 28.4 PG (27-31); MCHC 30.8 g/dL (33-37); MCV 92.3 FL (81-99); MONO# 0.81 X1000 (0.11-0.59); MONO% 6.9 % (1.7-9.3); MPV 9.1 FL (7.4-10.4); NEUT# 8.81 X1000 (1.4-6.5); NEUT% 75.2 % (42.2-75.2); PLT 201 X1000 (130-400); RBC 4.43 XMIL (4.7-6.1); RDW 18.1 % (11.5-14.5); WBC 11.72 X1000 (4.8-10.8)
[2019-07-13 08:43] LABS: AGAP 9; BUN 13 mg/dL (8-22); CALCIUM 8.9 mg/dL (8.8-10.2); CHLORIDE 102 mmol/L (98-107); COSMO 281; CREATININE 0.7 mg/dL (0.7-1.2); ESTIMATED GFR > 60; GLUCOSE 90 mg/dL (70-104); MAGNESIUM 2.1 mg/dL (1.5-2.7); POTASSIUM 4.6 mmol/L (3.5-5.1); SODIUM 141 mmol/L (136-145); TCO2 30 mmol/L (25-35)
--- NOTE | 2019-07-13 09:29 | PROGRESS NOTE ---
DATE: 07/13/2019 SUBJECTIVE: Mr. Calle is a 54-year-old man who has been diagnosed with granulomatosis with polyangiitis back in October of 2018. The GPA has been complicated with cellulitis of the right foot and gangrene of the right 3rd toe. Previous necrotic tissue has been noted on his tips of his fingers. He reports that they usually scab up and peel off with no problem. He has been seeing Dr. Hinojosa, a special education administrator, regularly and also Dr. Jose M iHnojosa saw him yesterday. Per the rheumatology note, he has a history of DVT, arrhythmia, left eye scleritis, asthma, and hypertension. Right 3rd toe was amputated yesterday, secondary to gangrene due to GPA. There is no one at the bedside at the time of encounter. OBJECTIVE: Vital Signs: Blood pressure is 160/115, heart rate 90, temperature 97.5 degrees orally, respirations 16, oxygenation 99 on room air. Is and Os neutral balance with 300 mL urine void, 10 mL estimated blood loss from surgery yesterday. Physical Examination: General: He is up in bed, in no distress. HEENT: Mucosa is moist. Eyes are large. Cardiovascular: S1 and S2 are appreciated. Irregular rhythm. No murmurs, gallops, or rubs. Lungs: Clear to auscultation bilaterally. GI: Abdomen is soft, nontender, nondistended. No lesions. Bowel sounds are present. Dermatological: On his upper back, there is decreased erythema of the folliculitis spots that I saw yesterday, soft, about 1 cm in diameter. Extremities: His right finger has 2 lesions at the tip of the index and middle finger that are black and look like they will peel off eventually with no extension to the rest of his fingers, just at the tip. Legs: His right foot is wrapped up in surgical wrapping. I did not remove it to examine. Dr. Rowe saw the patient this morning. There is no erythema on the rest of the leg. The left middle toe has a black spot at the tip that we will continue to monitor. Labs: White blood cell count is 11.72, hemoglobin is 12.6, hematocrit 40.9, platelets 201,000. Chemistry: There is no new chemistry. ASSESSMENT: A 54-year-old man with gangrene of his third right toe complicated with granulomatous polyangiitis, status post toe amputation. 1. Granulomatosis with polyangiitis, complicated gangrene of the toe. 2. Essential hypertension. 3. Anemia. 4. Mild leukocytosis. 5. Mild folliculitis. I think the antibiotics are helping here. PLANS: 1. Continue antibiotics/wound care 2. Hold methotrexate until the antibiotics are complete per rheumatology. 3. Physical therapy evaluation of the patient's ability to walk without that toe. 4. Wound care for surgical site. Discharge per surgical team. Dictated by Tasneem Zimmerman, Medical Student for Pete Eugene MD This chart was documented by, Tasneem Zimmerman, Medical Student and accurately reflects the services performed, treatment plan and medical decisions as attested by the providers signature Pete Eugene MD. cc: Pete Eugene MD MTDD
[2019-07-13] MEDS: VITAMIN B-12 PO SCH (09:37)
[2019-07-13] MEDS: PREDNISONE PO SCH (09:37)
[2019-07-13] MEDS: FOLIC ACID PO SCH (09:37)
[2019-07-13] MEDS: NEURONTIN PO SCH ×2 (09:37→20:21)
[2019-07-13] MEDS: PRINIVIL PO SCH (09:37)
[2019-07-13] MEDS: VANCOMYCIN 2 GM in NS 500 ML IV SCH (09:37)
[2019-07-13] MEDS: NORCO-7.5 PO PRN ×2 (09:41→16:33)
--- NOTE | 2019-07-13 16:04 | PROGRESS NOTE ---
DATE: 07/13/2019 ADDENDUM REPORT SUBJECTIVE: Patient has no major complaints. OBJECTIVE: Vital Signs: Blood pressure is 136/96, heart rate of 100, respiratory rate of 16, temperature 98.6 degrees. Cardiovascular: Regular rate and rhythm. Pulmonary: Bilateral breath sounds diminished at bases. Gastrointestinal: Abdomen is soft, nontender, nondistended. Bowel sounds are positive. PROBLEM LIST: 1. MRSA bacteremia - associated with necrotic ischemic toe - We will plan for vancomycin vs daptomycin for a total of 2 weeks and follow closely and plan for home IV therapy. 2. Blood cultures 72 hours will be tomorrow. 2.Ischemic toe/fingers related to GPA vasculitis - s/p toe amputation - wound care is following and surgery 3. GPA - pt is on high dose steroids would like to taper due to recent surgery but has not tolerated this in the past ; off MTX; Dr Hinojosa is following 4. Dispo- home with iv abx hopefully thursday cc: Pete Eugene MD MTDD
[2019-07-13] MEDS: XARELTO PO SCH (16:33)
[2019-07-14] MEDS: LABETALOL IV PRN (00:56)
[2019-07-14] MEDS: VANCOMYCIN 2,000 MG in NS 500 ML IV SCH ×2 (03:14→15:36)
--- NOTE | 2019-07-14 07:11 | GENERAL SURGERY PROGRESS NOTE ---
DATE: 07/14/2019 SUBJECTIVE: The patient seems to be doing well. OBJECTIVE: Vital Signs: The patient is currently afebrile. His vital signs are stable. General: No acute distress. Extremities: Right foot with dressing still intact. ASSESSMENT AND PLAN: A 54-year-old gentleman status post right third toe amputation. Postoperative state. At this time, he is currently postoperative day #2. Will plan on taking his dressing down tomorrow. cc: Suresh Rowe MD
[2019-07-14 07:57] LABS: BASO# 0.02 X1000 (0.0-0.2); BASO% 0.2 % (0.0-0.8); EOS# 0.04 X1000 (0.0-0.7); EOS% 0.4 % (0.0-10.0); HEMATOCRIT 39.9 % (42.0-52.0); HEMOGLOBIN 12.4 g/dL (14.0-18.0); IMM GRAN# 0.22 X1000 (0.0-0.04); LYMPH# 2.38 X1000 (1.2-3.4); LYMPH% 22.1 % (20.5-51.1); MCH 28.5 PG (27-31); MCHC 31.1 g/dL (33-37); MCV 91.7 FL (81-99); MONO# 0.82 X1000 (0.11-0.59); MONO% 7.6 % (1.7-9.3); MPV 9.2 FL (7.4-10.4); NEUT# 7.27 X1000 (1.4-6.5); NEUT% 67.7 % (42.2-75.2); PLT 236 X1000 (130-400); RBC 4.35 XMIL (4.7-6.1); RDW 17.7 % (11.5-14.5); WBC 10.75 X1000 (4.8-10.8)
[2019-07-14 08:33] LABS: AGAP 11; BUN 12 mg/dL (8-22); CALCIUM 9.1 mg/dL (8.8-10.2); CHLORIDE 104 mmol/L (98-107); COSMO 284; CREATININE 0.7 mg/dL (0.7-1.2); ESTIMATED GFR > 60; GLUCOSE 81 mg/dL (70-104); POTASSIUM 3.7 mmol/L (3.5-5.1); SODIUM 143 mmol/L (136-145); TCO2 28 mmol/L (25-35)
[2019-07-14] MEDS: PRINIVIL PO SCH (09:36)
[2019-07-14] MEDS: FOLIC ACID PO SCH (09:36)
[2019-07-14] MEDS: VITAMIN B-12 PO SCH (09:36)
[2019-07-14] MEDS: NEURONTIN PO SCH ×2 (09:36→21:21)
[2019-07-14] MEDS: PREDNISONE PO SCH (09:36)
--- NOTE | 2019-07-14 10:18 | PROGRESS NOTE ---
DATE: 07/14/2019 Medical Student progress note. SUBJECTIVE: Mr. Calle is a 54-year-old man who has been diagnosed with granulomatosis with polyangiitis back into October 2018. He presented with gangrene of his right 3rd toe. This is postop day 2. He has been able to get up and use the restroom on his own. He has not had any trouble with urination or bowel movements. OBJECTIVELY: Vital Signs: Blood pressure 152/101, heart rate 88, temperature 98.1 degrees orally, respirations 18, oxygen saturation 99% on nasal cannula. Intake and output in positive balance of 196 mL with urine void of 2950 mL. General: He is up in bed with no distress, pleasant to talk to. No complaints. HEENT: Mucosa is moist. Cardiovascular: S1, S2 are appreciated. However, is in irregular rhythms, most apparent at the mitral listening point, could be regurgitation. Follow up with Dr. Eugene. Lungs: Clear to auscultation bilaterally. Gastrointestinal: Abdomen is soft, nontender, nondistended. No lesions. Bowel sounds are present. Dermatological: The previously mentioned spots on his back of folliculitis have since flattened out. Extremities: Pedal pulses are 2+ bilaterally. There is mild edema in both of his legs. His right finger has 2 lesions at the tip of index and middle finger that are black that look like the GPA spots. He is hoping that they will peel off eventually like they usually do. The right foot is wrapped in surgical wrapping, I did not remove it to examine his foot. There is no erythema on the rest of the leg. The left middle toe has a similar spot to the fingers that we are also hoping will just peel off. LABORATORY DATA: White blood cell 10.75, hemoglobin 12.4, hematocrit 39.9, platelet count is 236,000. Chemistries: Sodium 143, potassium 3.7, chloride 104, bicarb 28, BUN 12, creatinine 0.7, glucose 81, calcium 9.1. Repeat blood cultures were drawn this morning. Blood cultures from admission showed bacteremia for MRSA 48 hours later that is sensitive to vancomycin. ASSESSMENT AND PLAN: A 54-year-old man with gangrene of his 3rd right toe secondary to granulomatous with polyangiitis. He is status post toe amputation day 2 with associated Methicillin-resistant Staphylococcus aureus bacteremia. 1. Granulomatosis with polyangiitis complicated with gangrene of the toe, status post toe amputation. Per Rheumatology, we will continue steroids and hold his methotrexate until the course of antibiotics are complete. 2. Essential hypertension. We are treating him with antihypertensives. We might need to increase the dose of medication because he is still hypertensive. 3. Anemia. We will transfuse if him becomes lower than 7, and I think we would suggest him iron supplements or outpatient follow up for his anemia. 4. Folliculitis which has resolved. 5. Mild dependent edema of his legs. We have raised the foot of the bed to help facilitate venous return. 6. MRSA bactermia- continue IV Vancomycin, once cultures are negative for 72 hours, will place pic line and d/c home on IV antibiotics. Dictated by Tasneem Zimmerman, Medical Student for Pete Eugene MD This chart was documented by, Tasneem Zimmerman, Medical Student and accurately reflects the services performed, treatment plan and medical decisions as attested by the providers signature Pete Eugene MD. cc: Pete Eugene MD [facility]
--- NOTE | 2019-07-14 13:01 | ECHO REPORT ---
ORDER DATE: 07/13/2019 INDICATION: Endocarditis. FINDINGS: 1. The right atrium appears normal in size. 2. Mild tricuspid regurgitation. Insufficient data to estimate RV systolic pressure. 3. Normal RV size and systolic function. 4. No significant pulmonic insufficiency. 5. Normal left atrial size. 6. No mitral valve prolapse. Mild mitral regurgitation. 7. Normal LV size. There is no evidence of left ventricular hypertrophy. End-diastolic dimension is 4.3 cm with an intraventricular septal wall thickness 1 cm. Normal LV systolic function. The estimated EF is 65 to 70 percent with normal wall motion. 8. The aortic valve opens well. I do not see any clear evidence of stenosis or insufficiency. 9. The aorta appears normal in visualized segments. 10. No pericardial effusion is seen. 11. There is no clear evidence of valvular vegetation. If clinical suspicion is high, would recommend alternative study such as BRO. cc: MD Pete Caldwell MD
[2019-07-14] MEDS: XARELTO PO SCH (17:29)
[2019-07-14] MEDS: NORCO-7.5 PO PRN (22:54)
--- NOTE | 2019-07-15 05:58 | GENERAL SURGERY PROGRESS NOTE ---
DATE: 07/15/2019 SUBJECTIVE: Patient seems to be doing okay. He does have Staph aureus in his blood on one culture. Repeat cultures have been drawn. We took down his dressing today. His wound seems to be healing okay. The erythema seems to be slightly improved. I suspect there is a good chance it will heal. We will get the nurses to do Vashe wet-to-dry just to clean off some of the slough noted in the wound, but otherwise, we will continue to follow while he is in the hospital. cc: Suresh Rowe MD
[2019-07-15] MEDS: VANCOMYCIN 2,000 MG in NS 500 ML IV SCH ×3 (06:51→19:49)
[2019-07-15] MEDS: LABETALOL IV PRN ×2 (07:43→18:43)
[2019-07-15] MEDS: FOLIC ACID PO SCH (08:48)
[2019-07-15] MEDS: PREDNISONE PO SCH (08:48)
[2019-07-15] MEDS: VITAMIN B-12 PO SCH (08:48)
[2019-07-15] MEDS: PRINIVIL PO SCH (08:48)
[2019-07-15] MEDS: NEURONTIN PO SCH ×2 (08:48→20:28)
--- NOTE | 2019-07-15 10:09 | PROGRESS NOTE ---
DATE: 07/15/2019 SUBJECTIVE: Mr. Calle is a 54-year-old man who has been diagnosed with granulomatosis with polyangiitis. He presents with gangrene of his right 3rd toe. This is postoperative day 3. Today he noted a history of asthma and nosebleeds. His blood pressure was significantly elevated this morning at 182/121, putting him at hypertensive urgency. We rechecked his blood pressure at the bedside, and it was 156/106. He denies any headaches, vision changes, or changes in urination. OBJECTIVE: Vital Signs: Blood pressure 182/121, repeat in the room was 156/106; heart rate was 86, temperature 98.6 degrees, respirations 18, oxygenation 93% on room air. Input and output, he has a negative balance of 1175 mL with 1175 mL urine void. General: On physical exam, he is well appearing, up in bed, in no distress, responsive to questioning. HEENT: Normocephalic, atraumatic. Right nares has red dried blood along the medial surface. Mucosa is moist. Cardiovascular: Regular rate and rhythm. No murmurs, gallops, or rubs appreciated today. Lungs: Clear to auscultation bilaterally. Gastrointestinal: Soft, nontender, nondistended. Bowel sounds present. Dermatologic: Previously erythematous lesions consistent with folliculitis have since resolved. Extremities: Right 3rd toe amputation with left 3rd toe has a spot on it that could become questionable. There are 2 lesions on his right hand on his index and ring finger. LABORATORY DATA: No new CBC, no new chemistries. Reviewed blood cultures and have been negative so far. We are pending final results. ASSESSMENT AND PLAN: A 54-year-old man with gangrene of his 3rd toe secondary to granulomatosis with polyangiitis. He is status post toe amputation day 3 with associated methicillin-resistant Staphylococcus aureus bacteremia. 1. Granulomatosis with polyangiitis, complicated gangrene of the toe, status post toe amputation per rheumatology. We will continue his steroids and hold methotrexate until course of antibiotics is complete. 2. Essential hypertension. We are treating him with antihypertensives. We will increase the dose today and measure his creatinine and check his kidney function as well. 3. Anemia. We will transfuse if his blood count becomes lower than 7, and we suggest him to follow up with his outpatient physician for iron supplementation. 4. Mild edema of the right leg, resolved in the left leg. The edema on the right leg is probably from the toe amputation. We will continue to elevate the floor of the bed and get him walking as soon as he is ready. 5. Methicillin-resistant Staphylococcus aureus bacteremia on intravenous vancomycin. Once the cultures are negative for 72 hours, we will place a peripherally inserted central catheter line and discharge him home on intravenous antibiotics. Dictated by Tasneem Zimmerman, Medical Student for Pete Eugene MD This chart was documented by, Tasneem Zimmerman, Medical Student and accurately reflects the services performed, treatment plan and medical decisions as attested by the providers signature Pete Eugene MD. cc: Pete Eugene MD
[2019-07-15 17:31] LABS: INR 0.95; PROTIME 12.8 Seconds (11.0-16.0)
[2019-07-16] MEDS: VANCOMYCIN 2,000 MG in NS 500 ML IV SCH (06:39)
[2019-07-16 08:37] VITALS: BP 163/110
[2019-07-16] MEDS: VITAMIN B-12 PO SCH (09:48)
[2019-07-16] MEDS: PREDNISONE PO SCH (09:48)
[2019-07-16] MEDS: PRINIVIL PO SCH (09:48)
[2019-07-16] MEDS: FOLIC ACID PO SCH (09:48)
[2019-07-16] MEDS: NEURONTIN PO SCH (09:59)
[2019-07-16] MEDS ORDERED: NS 250 ML ONE (13:03)
--- NOTE | 2019-07-16 13:51 | DISCHARGE SUMMARY ---
ADMISSION DATE: 07/11/2019 DISCHARGE DATE: 07/16/2019 DISCHARGE DIAGNOSES: 1. Methicillin-resistant Staphylococcal aureus assay bacteremia associated with an ischemic toe and ischemic cellulitis. 2. Granulomatis polyangiitis. 3. Vascular insufficiency. 4. History of deep venous thromboses. CONSULTATIONS: 1. Franky Hinojosa MD. 2. Suresh Rowe MD, General Surgery. 3. Luis Castañeda MD, Hematology/Oncology. PROCEDURES: 1. Toe amputation on July 12 for dry gangrene of the right 3rd toe. HOSPITAL COURSE: Briefly, this is a 54-year-old gentleman who has a diagnosis of GPA and is on high-dose steroids and methotrexate, who came in for evaluation. His toe had ischemia on it and he also has 2 fingers that had ischemia on them, but his toe continued to progress and developed cellulitis associated although it was a dry gangrene. Dr. Rowe was consulted after patient was placed on antibiotics, vancomycin and clindamycin. His blood cultures grew out Staphylococcus aureus, that was 2 cultures from July 11. He had arterial studies and had distal peripheral small-vessel disease, actually at 0.48 on the right and 0.62 on the left. He had the toe amputated on July 12. His blood cultures subsequently became positive. Dr. Hinojosa made adjustments in his immunosuppressants, leaving him on the prednisone at 80 mg but taking him off his methotrexate. He was also put back on his Xarelto. Plans were made for a PICC line. Blood cultures have been clear for going on 72 hours, so plan was to discharge on vancomycin for a total of 2 weeks. His random vancomycin level was high, but he had vancomycin previously. He will be discharged on 1.5 vancomycin every 12 hours for a total of 2 weeks, day 1 will be July 14. He had a limited echo because of his bacteremia, but there was no vegetations. EF was 65 to 70 percent. His wound healed very nicely. PLAN: The plan will be to discharge home with home IV therapy. Follow up with Dr. Hinojosa 1 to 2 weeks. Follow up with Dr. Rowe in 1 week to remove stitches. DISCHARGE CONDITION: Stable. DISCHARGE MEDICATIONS: Methotrexate we will hold until Dr. Hinojosa returns. Neurontin 400 b.i.d., prednisone 80 daily, Prinivil 20 daily, Xarelto 20 daily, folic acid 1 daily, vitamin B12, and then the vancomycin 1.5 gm IV every 12 hours for a total of 2 weeks. 32 minute discharge. cc: MD Franky Plummer MD Matthew L. Figh, MD Sammy Becdach, MD
--- NOTE | 2019-07-16 15:04 | PROGRESS NOTE ---
DATE: 07/16/2019 Emerson Calle is a 54-year-old male status post right toe amputation per Dr. Rowe. PICC line has been placed. He will be discharged home on IV vancomycin for a staph infection. Follow up with Dr. Rowe in our outpatient offices for recheck of his amputation in 10 to 14 days. cc: Layla Hollingsworth MD
== END 2019-07-16 15:06 | disposition home health service (06) | DRG 240 ==
LOC: ED 09:12 → SUATTDRO 09:13 → 3N 09:13
PROVIDERS: ATTEND Internal Medicine